=== PATIENT | male | born 1955 | race African-American/Black ===

== ENCOUNTER 2017-08-07 09:54 | Inpatient (IN) | payer OTHER ==
[2017-08-07] VITALS (7 sets, daily range): BP systolic 123–183; BP diastolic 67–103
[~2017-08-07] VITALS: Ht 170.2 cm; Wt 77.1 kg
--- NOTE | ~2017-08-07 | HC ---
[facility] [place] [address] CONSULTATION Name: RACHELLE STEELE Room #: 426-P [facility]..#: [id number] Admission: 08/07/17 Attend Phys: Jeffrey Godinez MD Discharge: 08/10/17 Date of : 55 Report #: [id number] THIS REPORT FOR: //name// CC: Jeffrey Maciel DATE OF SERVICE: 08/08/2017 INTRODUCTION: The patient is a 62-year-old male who was admitted through [facility] Emergency Department approximately 24 hours ago with worsening condition involving his left fourth and fifth toes. This individual is a diabetic with a history of peripheral neuropathy who denies prior foot complications. He has been aware of increasing discoloration and skin quality changes associated with his left fourth and fifth toes over the past several months. In the last 1-2 weeks, he has had increasing pain. He denies any history of trauma to his toes and was not febrile, denying constitutional symptoms associated with a possible infection. He has no cellulitis of the left foot. When questioned regarding his vascular status, he denies history of symptoms suggestive of peripheral arterial disease. He has not had any prior vascular procedures or examinations. He was admitted with a diagnosis of osteomyelitis based on radiographs, it demonstrated dissolution of the left fourth distal phalanx, currently on IV antibiotics. PAST MEDICAL HISTORY: Includes history of diabetes with peripheral neuropathy. He is admitted with blood sugars over 400. ALLERGIES: Has a history of sensitivity to PENICILLIN. No prior history of foot surgery, ulcerations or trauma. PHYSICAL EXAMINATION: Pedal exam, dorsalis pedis and posterior tibial pulses are nonpalpable bilaterally. Capillary refill time is delayed. The left fourth and fifth toes are discolored, tight and shiny appearing with evidence of dry wound bed of the fifth toe where the nail is absent. The wound bed is dark. The left fourth toenail is intact. There is no gross pus or cellulitis. There is some very light drainage from the proximal nail fold. There is no distal wound present. Web space is slightly macerated. No additional wounds or infectious changes. Radiographs demonstrate almost complete absence of the left fourth distal phalanx. No osseous involvement of the fifth toe is appreciated. There are numerous pedal vessels on radiograph demonstrating medial calcification. IMPRESSION AND PLAN: 1. Diabetes mellitus with peripheral neuropathy and possible peripheral [address] [address] CONSULTATION Name: RACHELLE STEELE Room #: 426-P [facility] IN [facility]#: [id number] Admission: 08/07/17 Attend Phys: Jeffrey Godinez MD Discharge: 08/10/17 Date of : 55 Report #: [id number] arterial disease. 2. Infection, left fourth and fifth toes consistent with more chronic presentation. There is no ulceration at this time. Slight drainage from the fourth proximal nail fold and radiographic findings of osseous dissolution consistent with osteomyelitis or chronic changes associated with peripheral arterial disease. These toes are cool and discolored consistent with arterial etiology. Recommended continued IV antibiotics. We will order lower extremity arterial Doppler exam of both lower extremities. I discussed the patient's condition with him at length and this condition will likely require some surgical debridement including a probable amputation to rectify the osteomyelitis of the fourth toe. We will await results on arterial testing prior to intervening in this case as patient's condition is relatively stable. <ELECTRONICALLY SIGNED> By: Yaw Morgan DPM 08/12/17 0933 1111 [id number] Yaw Morgan DPM /nt
--- NOTE | ~2017-08-07 | O ---
[facility] [place] [address] OPERATIVE REPORT Name: RACHELLE STEELE Room #: 426-P [facility] IN ..#: [id number] Admission: 08/07/17 Attend Phys: Jeffrey Godinez MD Discharge: 08/10/17 Date of : 55 Report #: [id number] THIS REPORT FOR: //name// CC: Jeffrey Maciel DATE OF SERVICE: 08/09/2017 PREOPERATIVE DIAGNOSES: 1. Osteomyelitis of the left fourth digit. 2. Ischemic ulceration, left fifth digit. POSTOPERATIVE DIAGNOSES: 1. Osteomyelitis of the left fourth digit. 2. Ischemic ulceration, left fifth digit. PROCEDURE: Amputation of the left fourth and fifth digits to the metatarsophalangeal joints level. ANESTHESIA: LMA and local. HEMOSTASIS: Pneumatic ankle tourniquet. ESTIMATED BLOOD LOSS: 15 mL. PROCEDURE IN DETAIL: Under mild sedation, the patient was brought to the operating room and placed on the operating table in the supine position. A well-padded pneumatic ankle tourniquet was then placed about the patient's left ankle. Following sedation, local anesthesia was obtained about the surgery site utilizing a total of 20 mL of 1:1 mixture of 1% lidocaine plain and 0.5% Marcaine plain. The foot was then scrubbed, prepped, and draped in the usual aseptic manner. An Esmarch bandage was then utilized to exsanguinate the patient's left foot and the pneumatic ankle tourniquet was inflated to 250 mmHg. Attention was then directed to the left fourth digit where culture swabs were taken from the wound present overlying the distal phalanx, for aerobic and anaerobic bacteria. Two converging semielliptical transverse incisions were made at the base of the left fourth and fifth digits, encompassing both digits. Incisions were then deepened through the subcutaneous tissues with care being taken to identify and retract all vital neural and vascular structures. All bleeders were cauterized and ligated as necessary. At this time, dissection was continued down to the level of the left fourth and fifth metatarsophalangeal joints, which were then disarticulated utilizing a 15 blade. fourth digits were then passed from the operative field in toto. Both specimens were retained to be sent to pathology for both macro and microscopic studies. The wound was then inspected for any remaining devitalized or necrotic tissue, and [address] [address] OPERATIVE REPORT Name: RACHELLE STEELE Room #: 426-P [facility] IN [facility]#: [id number] Admission: 08/07/17 Attend Phys: Jeffrey Godinez MD Discharge: 08/10/17 Date of : 55 Report #: [id number] it should be noted that none was found. The wound was then copiously irrigated with bacitracin and sterile normal saline solution. Any remaining bleeders were then cauterized and ligated as necessary. The skin was then reapproximated and coapted utilizing 3-0 nylon in simple interrupted suture technique. The incision was then dressed with Betadine-soaked Adaptic and covered with a sterile compressive dressing consisting of 4 x 4s, Kerlix and an Aren wrap. The pneumatic ankle tourniquet was then deflated and a prompt hyperemic response was noted to digits 1, 2, 3 of the left foot. The patient tolerate d the procedure and anesthesia well. He was transferred to the recovery room with vital signs stable. Following a period of postoperative monitoring, the patient will be readmitted to the floor for continued IV antibiotics and postoperative recovery. <ELECTRONICALLY SIGNED> By: Tanya Frias DPM 08/17/17 1037 08 2141 Tanya Frias DPM /nt
--- NOTE | ~2017-08-07 | S ---
[facility] [place] [address] SURGICAL PATH RPT PROCEDURE Name: RACHELLE STEELE Room #: 426-P DIS IN M.R.#: [id number] Admission: 08/07/17 Date of : 55 Discharge: 08/10/17 Report #: [id number] Path Case #: [id number] PATHOLOGY REPORT COLLECTION DATE: 08/09/2017 RECEIVED DATE: 08/09/2017 SUBMITTING PHYS: Dr. Tanya Frias OTHER PHYS: Dr. Jeffrey Maciel SPECIMEN(S) RECEIVED: A.Left 4th toe B.Left 5th toe * * * * * * * * * * * * FINAL DIAGNOSIS: A. "Left 4th toe", amputation: - Skin and subcutaneous tissue with marked reactive changes including acute and chronic inflammation and pseudoepitheliomatous hyperplasia. - Decalcified bone with acute and chronic inflammation, fibrosis and active bony remodeling (see comment). B. "Left 5th toe", amputation: - Skin and subcutaneous tissue with acute and chronic inflammation, necrosis, granulation tissue, fibrosis, fat necrosis and pseudoepitheliomatous hyperplasia. - Decalcified bone with acute osteomyelitis. COMMENT: Within specimen A, the bony changes may represent chronic osteomyelitis. Clinical and radiographic correlation is recommended. (CLW:oscar; 08/11/2017) PATHOLOGIST: Kamryn Salazar M.D. REPORT ELECTRONICALLY SIGNED BY: Kamryn Salazar M.D. DATE/TIME: 08/11/2017 13:01 * * * * * * * * * * * * GROSS PATHOLOGY: A. The specimen is received in formalin labeled "Rachelle Steele fourth toe-left". Received is an amputated digit measuring 4.6 x 2.5 x 1.8 cm in greatest dimensions. The bone margin is smooth and concave in appearance, consistent with disarticulation. The bone and soft tissue margins are inked black. The nail is present displaying a light cabrera and flaky appearance. The epidermal surface is pale cabrera to dusky carreon-brown and wrinkled in appearance. No distinct nodules or [address] [address] SURGICAL PATH RPT PROCEDURE Name: RACHELLE STEELE Tomas Room #: 426-P DIS IN M.R.#: [id number] Admission: 08/07/17 Date of : 55 Discharge: 08/10/17 Report #: [id number] Path Case #: [id number] lesions are noted grossly. A full-length longitudinal cross-section is submitted in cassettes A1 and A2, from proximal to distal aspects, following decalcification. B. The specimen is received in formalin labeled "Rachelle Steele fifth toe-left". Received is an amputated digit measuring 4.3 x 2.3 x 2.17 m in greatest dimensions. The bone margin is smooth and concave in appearance, consistent with disarticulation. The bone and soft tissue margins are inked black. The nail is absent. The epidermal surface displays a well-circumscribed, focally ulcerated light brown lesion measuring 2.1 x 1.3 cm, which is 1.0 cm from the closest skin margin. The remainder of the epidermal surface is carreon-cabrera to dusky carreon-brown in appearance. A full-length longitudinal cross-section is submitted in cassettes B1 and B2, proximal to distal aspects, following decalcification. (CAA; 08/10/2017) CLINICAL HISTORY: Diabetic foot, left INITIAL CPT CODE(S): A; 46733, 39856 B; 43813, 53872 Professional services performed by [facility] at [place] [address] [address], [place] [address] Technical services performed by el? at [address] [place] [address], [address], [place] [address]. [facility] [place] [address] PHONE: [phone] DIRECTOR: Santana Blackman M.D. * * * END OF REPORT * * *
[~2017-08-07 09:54] MED LIST: ASPIRIN325; EAR DROPS15 ML OT; GLUCOPHAGE XR750 MG PO; HUMALOG100 UNIT/1 SQ; LISINOPRIL10 MG PO; LOTENSIN20 MG PO; METFORMIN; NORCO 5-325 TA1 EACH PO; NORCO 7.5-3251 EACH PO
[2017-08-07 10:20] LABS: ABSOLUTE NEUTROPHILS 2.6 thou/uL (1.4-8.2); BASOPHILS 0.5 % (0.0-2.0); EOSINOPHILS 4.1 % (0.0-3.0); HEMATOCRIT 36.2 % (42.0-52.0); HEMOGLOBIN 11.9 gm/dL (14.0-18.0); LYMPHOCYTES 29.4 % (24.0-44.0); MCH 30.1 pg (26.0-34.0); MCHC 32.8 g/dL (28.0-37.0); MCV 91.8 fL (80.0-100.0); MONOCYTES 6.7 % (1.0-8.0); PLATELET COUNT 287 thou/uL (150-400); POLYS 59.3 % (36.0-66.0); RBC 3.94 mil/uL (4.50-6.00); RDW 13.7 % (10.5-14.5); WBC 4.3 thou/uL (4.0-11.0)
[2017-08-07 10:22] LABS: MANUAL DIFF NO
[2017-08-07 10:28] LABS: CALCIUM 8.8 mg/dL (8.5-10.1); POTASSIUM 4.4 mmol/L (3.5-5.1)
[2017-08-07 10:34] LABS: ALBUMIN 3.1 g/dL (3.4-5.0); TOTAL BILIRUBIN 0.3 mg/dL (<0.1-1.0); TOTAL PROTEIN 7.2 g/dL (6.4-8.2)
[2017-08-08 03:55] LABS: HEMATOCRIT 36.1 % (42.0-52.0); HEMOGLOBIN 11.9 gm/dL (14.0-18.0); MCH 30.3 pg (26.0-34.0); MCHC 33.1 g/dL (28.0-37.0); MCV 91.8 fL (80.0-100.0); RBC 3.93 mil/uL (4.50-6.00); RDW 13.5 % (10.5-14.5)
[2017-08-08 04:07] LABS: CALCIUM 8.2 mg/dL (8.5-10.1); CREATININE 0.9 mg/dL (0.7-1.3); POTASSIUM 4.1 mmol/L (3.5-5.1)
[2017-08-08 04:30] VITALS: BP 109/64
[2017-08-08 08:00] VITALS: BP 132/77
[2017-08-08 16:39] VITALS: BP 124/71
[2017-08-08 20:00] VITALS: BP 127/76
[2017-08-09 04:00] VITALS: BP 152/85
[2017-08-09 08:09] VITALS: BP 172/85
[2017-08-09 20:00] VITALS: BP 160/94
[2017-08-10 04:30] VITALS: BP 147/79
[2017-08-10 08:03] VITALS: BP 151/99
[2017-08-10] MEDS ORDERED: CLEOCIN HCL150 MG PO (12:03)
[2017-08-10] MEDS ORDERED: HUMALOG100 UNIT/1 SUBQ (12:03)
[2017-08-10 15:01] VITALS: BP 151/99
[2017-08-10 16:38] VITALS: BP 177/105
== END 2017-08-10 17:26 | disposition home or self-care (01) | DRG 617 ==
LOC: ER 09:54 → 4E 11:29 → EROBS 11:29 → 4E 12:49 → ENTRNSPT 08-10 17:12 → 4E 08-10 17:26
PROVIDERS: Hospitalist; Nurse Practitioner
PROC: 0Y6N0ZD Detachment at Left Foot, Partial 4th Ray, Open Approach (ICD-10-PCS; principal; 2017-08-09)
PROC: 0Y6N0ZF Detachment at Left Foot, Partial 5th Ray, Open Approach (ICD-10-PCS; 2017-08-09)
DX: E11.69 Type 2 diabetes mellitus with other specified complication (principal); M86.8X7 Other osteomyelitis, ankle and foot; L97.429 Non-pressure chronic ulcer of left heel and midfoot with unspecified severity; E44.1 Mild protein-calorie malnutrition; I10 Essential (primary) hypertension; K21.9 Gastro-esophageal reflux disease without esophagitis; E11.649 Type 2 diabetes mellitus with hypoglycemia without coma; E11.42 Type 2 diabetes mellitus with diabetic polyneuropathy; E11.621 Type 2 diabetes mellitus with foot ulcer; L08.9 Local infection of the skin and subcutaneous tissue, unspecified; Z79.82 Long term (current) use of aspirin; Z79.4 Long term (current) use of insulin; Z79.899 Other long term (current) drug therapy; Z88.0 Allergy status to penicillin
CPT/HCPCS: 10183; 50101; 50386; 56526; 56527; 57091; 62110; 62900; 70005

== ENCOUNTER → 2017-09-21 | Outpatient (CLI) | payer OTHER ==
[~2017-09-21] MED LIST changes: +ASPIR 8181 MG PO; +ATORVASTATIN CA40 MG PO; +CLEOCIN HCL150 MG PO; +COLACE100 MG PO; +DIOVAN320 MG PO; +FLONASE 0.05%50 MCG NASAL; +GABAPENTIN 100100 MG PO; +HUMALOG100 UNIT/1 SUBQ; +HYDROCHLOROTHIA25 M2 PO; +IBUPROFEN 800800 M1 PO; +IRON325 PO; +LANTUS SUBQ; +LYRICA 50 MG50 MG PO; +MIRALAX17 GM PO; +NAPROXEN375 MG PO; +NORFLEX100 MG PO; +NORVASC5 MG PO; +NOVOLOG100 UNIT/1 SUBQ; +OMEPRAZOLE40 MG PO; +PERCOCET 5-3251 EACH PO; +SILDENAFIL20 MG PO; +VITAMIN B122500 MCG PO; +VITAMIN D1000 UNI1 PO
== END ==
LOC: HYPER 09-20 16:20
DX: T87.89 Other complications of amputation stump (principal); E11.622 Type 2 diabetes mellitus with other skin ulcer; L97.521 Non-pressure chronic ulcer of other part of left foot limited to breakdown of skin; I70.245 Atherosclerosis of native arteries of left leg with ulceration of other part of foot; E11.40 Type 2 diabetes mellitus with diabetic neuropathy, unspecified; E11.69 Type 2 diabetes mellitus with other specified complication; M86.172 Other acute osteomyelitis, left ankle and foot; I10 Essential (primary) hypertension; J45.909 Unspecified asthma, uncomplicated; Z87.891 Personal history of nicotine dependence; Y83.5 Amputation of limb(s) as the cause of abnormal reaction of the patient, or of later complication, without mention of misadventure at the time of the procedure

== ENCOUNTER → 2017-09-30 | Outpatient (CLI) | payer OTHER | LOC: HYPER 09-29 14:22 | DX: T87.81 Dehiscence of amputation stump (principal); E11.621 Type 2 diabetes mellitus with foot ulcer; L97.521 Non-pressure chronic ulcer of other part of left foot limited to breakdown of skin; I70.245 Atherosclerosis of native arteries of left leg with ulceration of other part of foot; E11.40 Type 2 diabetes mellitus with diabetic neuropathy, unspecified; E11.69 Type 2 diabetes mellitus with other specified complication; M86.172 Other acute osteomyelitis, left ankle and foot; J45.909 Unspecified asthma, uncomplicated; I10 Essential (primary) hypertension; E11.319 Type 2 diabetes mellitus with unspecified diabetic retinopathy without macular edema; Z87.891 Personal history of nicotine dependence; Y83.5 Amputation of limb(s) as the cause of abnormal reaction of the patient, or of later complication, without mention of misadventure at the time of the procedure ==

== ENCOUNTER → 2017-10-05 | Outpatient (CLI) | payer OTHER | LOC: HYPER 06:53 | DX: T87.89 Other complications of amputation stump (principal); E11.621 Type 2 diabetes mellitus with foot ulcer; L97.521 Non-pressure chronic ulcer of other part of left foot limited to breakdown of skin; I70.245 Atherosclerosis of native arteries of left leg with ulceration of other part of foot; E11.40 Type 2 diabetes mellitus with diabetic neuropathy, unspecified; E11.69 Type 2 diabetes mellitus with other specified complication; M86.172 Other acute osteomyelitis, left ankle and foot; I10 Essential (primary) hypertension; J45.909 Unspecified asthma, uncomplicated; Z87.891 Personal history of nicotine dependence; Z89.422 Acquired absence of other left toe(s); Y83.5 Amputation of limb(s) as the cause of abnormal reaction of the patient, or of later complication, without mention of misadventure at the time of the procedure ==

== ENCOUNTER → 2017-10-06 | Outpatient (CLI) | payer OTHER | LOC: HYPER 06:50 → RAD 06:50 | DX: T81.31XD Disruption of external operation (surgical) wound, not elsewhere classified, subsequent encounter (principal); E11.40 Type 2 diabetes mellitus with diabetic neuropathy, unspecified; E11.69 Type 2 diabetes mellitus with other specified complication; M86.172 Other acute osteomyelitis, left ankle and foot; E11.621 Type 2 diabetes mellitus with foot ulcer; L97.521 Non-pressure chronic ulcer of other part of left foot limited to breakdown of skin; I70.245 Atherosclerosis of native arteries of left leg with ulceration of other part of foot; I10 Essential (primary) hypertension; J45.909 Unspecified asthma, uncomplicated; Z87.891 Personal history of nicotine dependence; Z89.422 Acquired absence of other left toe(s); Y83.8 Other surgical procedures as the cause of abnormal reaction of the patient, or of later complication, without mention of misadventure at the time of the procedure ==

== ENCOUNTER → 2017-10-07 | Outpatient (CLI) | payer OTHER | LOC: HYPER 08:25 | DX: T81.31XD Disruption of external operation (surgical) wound, not elsewhere classified, subsequent encounter (principal); E11.621 Type 2 diabetes mellitus with foot ulcer; L97.521 Non-pressure chronic ulcer of other part of left foot limited to breakdown of skin; I70.245 Atherosclerosis of native arteries of left leg with ulceration of other part of foot; E11.40 Type 2 diabetes mellitus with diabetic neuropathy, unspecified; E11.69 Type 2 diabetes mellitus with other specified complication; M86.172 Other acute osteomyelitis, left ankle and foot; I10 Essential (primary) hypertension; J45.909 Unspecified asthma, uncomplicated; Z87.891 Personal history of nicotine dependence; Z89.422 Acquired absence of other left toe(s); Y83.8 Other surgical procedures as the cause of abnormal reaction of the patient, or of later complication, without mention of misadventure at the time of the procedure ==

== ENCOUNTER → 2017-10-11 | Outpatient (CLI) | payer OTHER | LOC: HYPER 10-08 16:16 | DX: T87.81 Dehiscence of amputation stump (principal); E11.621 Type 2 diabetes mellitus with foot ulcer; I70.245 Atherosclerosis of native arteries of left leg with ulceration of other part of foot; L97.521 Non-pressure chronic ulcer of other part of left foot limited to breakdown of skin; E11.69 Type 2 diabetes mellitus with other specified complication; M86.172 Other acute osteomyelitis, left ankle and foot; E11.40 Type 2 diabetes mellitus with diabetic neuropathy, unspecified; J45.909 Unspecified asthma, uncomplicated; I10 Essential (primary) hypertension; Z87.891 Personal history of nicotine dependence; Y83.5 Amputation of limb(s) as the cause of abnormal reaction of the patient, or of later complication, without mention of misadventure at the time of the procedure ==

== ENCOUNTER → 2017-10-12 | Outpatient (CLI) | payer OTHER | LOC: HYPER 06:38 | DX: T81.31XD Disruption of external operation (surgical) wound, not elsewhere classified, subsequent encounter (principal); E11.621 Type 2 diabetes mellitus with foot ulcer; I70.245 Atherosclerosis of native arteries of left leg with ulceration of other part of foot; L97.521 Non-pressure chronic ulcer of other part of left foot limited to breakdown of skin; E11.69 Type 2 diabetes mellitus with other specified complication; M86.172 Other acute osteomyelitis, left ankle and foot; E11.40 Type 2 diabetes mellitus with diabetic neuropathy, unspecified; J45.909 Unspecified asthma, uncomplicated; I10 Essential (primary) hypertension; Z87.891 Personal history of nicotine dependence; Z89.422 Acquired absence of other left toe(s); Y83.8 Other surgical procedures as the cause of abnormal reaction of the patient, or of later complication, without mention of misadventure at the time of the procedure ==

== ENCOUNTER → 2017-10-13 | Outpatient (CLI) | payer OTHER | LOC: HYPER 06:50 | DX: T87.89 Other complications of amputation stump (principal); E11.621 Type 2 diabetes mellitus with foot ulcer; L97.521 Non-pressure chronic ulcer of other part of left foot limited to breakdown of skin; I70.245 Atherosclerosis of native arteries of left leg with ulceration of other part of foot; E11.69 Type 2 diabetes mellitus with other specified complication; M86.172 Other acute osteomyelitis, left ankle and foot; E11.40 Type 2 diabetes mellitus with diabetic neuropathy, unspecified; J45.909 Unspecified asthma, uncomplicated; I10 Essential (primary) hypertension; Z87.891 Personal history of nicotine dependence; Y83.5 Amputation of limb(s) as the cause of abnormal reaction of the patient, or of later complication, without mention of misadventure at the time of the procedure ==

== ENCOUNTER → 2017-10-13 | Outpatient (CLI) | payer OTHER | LOC: HYPER 06:45 | DX: T87.81 Dehiscence of amputation stump (principal); E11.621 Type 2 diabetes mellitus with foot ulcer; L97.521 Non-pressure chronic ulcer of other part of left foot limited to breakdown of skin; I70.245 Atherosclerosis of native arteries of left leg with ulceration of other part of foot; J45.909 Unspecified asthma, uncomplicated; I10 Essential (primary) hypertension; E11.69 Type 2 diabetes mellitus with other specified complication; M86.172 Other acute osteomyelitis, left ankle and foot; E11.40 Type 2 diabetes mellitus with diabetic neuropathy, unspecified; Z87.891 Personal history of nicotine dependence; Y83.5 Amputation of limb(s) as the cause of abnormal reaction of the patient, or of later complication, without mention of misadventure at the time of the procedure ==

== ENCOUNTER → 2017-10-14 | Outpatient (CLI) | payer OTHER | LOC: HYPER 06:48 | DX: T81.31XD Disruption of external operation (surgical) wound, not elsewhere classified, subsequent encounter (principal); E11.621 Type 2 diabetes mellitus with foot ulcer; I70.245 Atherosclerosis of native arteries of left leg with ulceration of other part of foot; L97.521 Non-pressure chronic ulcer of other part of left foot limited to breakdown of skin; E11.40 Type 2 diabetes mellitus with diabetic neuropathy, unspecified; E11.69 Type 2 diabetes mellitus with other specified complication; M86.172 Other acute osteomyelitis, left ankle and foot; J45.909 Unspecified asthma, uncomplicated; Z87.891 Personal history of nicotine dependence; Z89.422 Acquired absence of other left toe(s); Y83.8 Other surgical procedures as the cause of abnormal reaction of the patient, or of later complication, without mention of misadventure at the time of the procedure ==

== ENCOUNTER → 2017-10-19 | Outpatient (CLI) | payer OTHER | LOC: HYPER 06:52 | DX: T81.31XD Disruption of external operation (surgical) wound, not elsewhere classified, subsequent encounter (principal); E11.621 Type 2 diabetes mellitus with foot ulcer; I70.245 Atherosclerosis of native arteries of left leg with ulceration of other part of foot; L97.521 Non-pressure chronic ulcer of other part of left foot limited to breakdown of skin; E11.40 Type 2 diabetes mellitus with diabetic neuropathy, unspecified; E11.69 Type 2 diabetes mellitus with other specified complication; M86.172 Other acute osteomyelitis, left ankle and foot; J45.909 Unspecified asthma, uncomplicated; I10 Essential (primary) hypertension; Z87.891 Personal history of nicotine dependence; Z89.422 Acquired absence of other left toe(s); Y83.8 Other surgical procedures as the cause of abnormal reaction of the patient, or of later complication, without mention of misadventure at the time of the procedure ==

== ENCOUNTER → 2017-10-20 | Outpatient (CLI) | payer OTHER | LOC: HYPER 08:14 | DX: T81.31XD Disruption of external operation (surgical) wound, not elsewhere classified, subsequent encounter (principal); E11.621 Type 2 diabetes mellitus with foot ulcer; I70.245 Atherosclerosis of native arteries of left leg with ulceration of other part of foot; L97.521 Non-pressure chronic ulcer of other part of left foot limited to breakdown of skin; E11.40 Type 2 diabetes mellitus with diabetic neuropathy, unspecified; E11.69 Type 2 diabetes mellitus with other specified complication; M86.172 Other acute osteomyelitis, left ankle and foot; J45.909 Unspecified asthma, uncomplicated; Z87.891 Personal history of nicotine dependence; Z89.422 Acquired absence of other left toe(s); Y83.8 Other surgical procedures as the cause of abnormal reaction of the patient, or of later complication, without mention of misadventure at the time of the procedure ==

== ENCOUNTER → 2017-10-21 | Outpatient (CLI) | payer OTHER | LOC: HYPER 06:55 | DX: T81.31XD Disruption of external operation (surgical) wound, not elsewhere classified, subsequent encounter (principal); E11.621 Type 2 diabetes mellitus with foot ulcer; L97.521 Non-pressure chronic ulcer of other part of left foot limited to breakdown of skin; I70.245 Atherosclerosis of native arteries of left leg with ulceration of other part of foot; E11.69 Type 2 diabetes mellitus with other specified complication; M86.172 Other acute osteomyelitis, left ankle and foot; E11.40 Type 2 diabetes mellitus with diabetic neuropathy, unspecified; J45.909 Unspecified asthma, uncomplicated; I10 Essential (primary) hypertension; Z87.891 Personal history of nicotine dependence; Z89.422 Acquired absence of other left toe(s); Y83.8 Other surgical procedures as the cause of abnormal reaction of the patient, or of later complication, without mention of misadventure at the time of the procedure ==

== ENCOUNTER → 2017-10-25 | Outpatient (CLI) | payer OTHER | LOC: HYPER 07:00 | DX: T87.81 Dehiscence of amputation stump (principal); E11.621 Type 2 diabetes mellitus with foot ulcer; L97.521 Non-pressure chronic ulcer of other part of left foot limited to breakdown of skin; I70.245 Atherosclerosis of native arteries of left leg with ulceration of other part of foot; E11.40 Type 2 diabetes mellitus with diabetic neuropathy, unspecified; E11.69 Type 2 diabetes mellitus with other specified complication; M86.172 Other acute osteomyelitis, left ankle and foot; E11.319 Type 2 diabetes mellitus with unspecified diabetic retinopathy without macular edema; J45.909 Unspecified asthma, uncomplicated; I10 Essential (primary) hypertension; Z87.891 Personal history of nicotine dependence; Y83.5 Amputation of limb(s) as the cause of abnormal reaction of the patient, or of later complication, without mention of misadventure at the time of the procedure ==

== ENCOUNTER → 2017-10-27 | Outpatient (CLI) | payer OTHER | LOC: HYPER 07:05 | DX: T81.31XD Disruption of external operation (surgical) wound, not elsewhere classified, subsequent encounter (principal); E11.621 Type 2 diabetes mellitus with foot ulcer; I70.245 Atherosclerosis of native arteries of left leg with ulceration of other part of foot; L97.521 Non-pressure chronic ulcer of other part of left foot limited to breakdown of skin; E11.40 Type 2 diabetes mellitus with diabetic neuropathy, unspecified; E11.69 Type 2 diabetes mellitus with other specified complication; M86.172 Other acute osteomyelitis, left ankle and foot; I10 Essential (primary) hypertension; J45.909 Unspecified asthma, uncomplicated; Z87.891 Personal history of nicotine dependence; Z89.422 Acquired absence of other left toe(s); Y83.8 Other surgical procedures as the cause of abnormal reaction of the patient, or of later complication, without mention of misadventure at the time of the procedure ==

== ENCOUNTER → 2017-10-29 | Outpatient (CLI) | payer OTHER | LOC: HYPER 07:57 | DX: T81.31XD Disruption of external operation (surgical) wound, not elsewhere classified, subsequent encounter (principal); E11.621 Type 2 diabetes mellitus with foot ulcer; I70.245 Atherosclerosis of native arteries of left leg with ulceration of other part of foot; L97.521 Non-pressure chronic ulcer of other part of left foot limited to breakdown of skin; E11.40 Type 2 diabetes mellitus with diabetic neuropathy, unspecified; E11.69 Type 2 diabetes mellitus with other specified complication; M86.172 Other acute osteomyelitis, left ankle and foot; I10 Essential (primary) hypertension; J45.909 Unspecified asthma, uncomplicated; Z87.891 Personal history of nicotine dependence; Z89.422 Acquired absence of other left toe(s); Y83.8 Other surgical procedures as the cause of abnormal reaction of the patient, or of later complication, without mention of misadventure at the time of the procedure ==

== ENCOUNTER → 2017-11-02 | Outpatient (CLI) | payer OTHER | LOC: HYPER 06:45 | DX: T81.31XD Disruption of external operation (surgical) wound, not elsewhere classified, subsequent encounter (principal); E11.621 Type 2 diabetes mellitus with foot ulcer; I70.245 Atherosclerosis of native arteries of left leg with ulceration of other part of foot; L97.521 Non-pressure chronic ulcer of other part of left foot limited to breakdown of skin; E11.69 Type 2 diabetes mellitus with other specified complication; M86.172 Other acute osteomyelitis, left ankle and foot; E11.40 Type 2 diabetes mellitus with diabetic neuropathy, unspecified; J45.909 Unspecified asthma, uncomplicated; I10 Essential (primary) hypertension; Z87.891 Personal history of nicotine dependence; Z89.422 Acquired absence of other left toe(s); Y83.8 Other surgical procedures as the cause of abnormal reaction of the patient, or of later complication, without mention of misadventure at the time of the procedure ==

== ENCOUNTER → 2017-11-22 | Outpatient (CLI) | payer OTHER | LOC: HYPER 10-26 06:42 | DX: T87.89 Other complications of amputation stump (principal); E11.621 Type 2 diabetes mellitus with foot ulcer; I70.245 Atherosclerosis of native arteries of left leg with ulceration of other part of foot; L97.521 Non-pressure chronic ulcer of other part of left foot limited to breakdown of skin; E11.40 Type 2 diabetes mellitus with diabetic neuropathy, unspecified; E11.69 Type 2 diabetes mellitus with other specified complication; M86.172 Other acute osteomyelitis, left ankle and foot; J45.909 Unspecified asthma, uncomplicated; I10 Essential (primary) hypertension; Z87.891 Personal history of nicotine dependence; Y83.5 Amputation of limb(s) as the cause of abnormal reaction of the patient, or of later complication, without mention of misadventure at the time of the procedure ==

== ENCOUNTER → 2017-12-24 | Outpatient (CLI) | payer OTHER ==
[~2017-12-24] MED LIST changes: -ASPIR 8181 MG PO; -ATORVASTATIN CA40 MG PO; -COLACE100 MG PO; -DIOVAN320 MG PO; -FLONASE 0.05%50 MCG NASAL; -GABAPENTIN 100100 MG PO; -HYDROCHLOROTHIA25 M2 PO; -IBUPROFEN 800800 M1 PO; -IRON325 PO; -LANTUS SUBQ; -LYRICA 50 MG50 MG PO; -MIRALAX17 GM PO; -NAPROXEN375 MG PO; -NORFLEX100 MG PO; -NORVASC5 MG PO; -NOVOLOG100 UNIT/1 SUBQ; -OMEPRAZOLE40 MG PO; -PERCOCET 5-3251 EACH PO; -SILDENAFIL20 MG PO; -VITAMIN B122500 MCG PO; -VITAMIN D1000 UNI1 PO
== END ==
LOC: HYPER 07:59
DX: T87.89 Other complications of amputation stump (principal); E11.621 Type 2 diabetes mellitus with foot ulcer; L97.521 Non-pressure chronic ulcer of other part of left foot limited to breakdown of skin; I70.245 Atherosclerosis of native arteries of left leg with ulceration of other part of foot; E11.40 Type 2 diabetes mellitus with diabetic neuropathy, unspecified; E11.69 Type 2 diabetes mellitus with other specified complication; M86.172 Other acute osteomyelitis, left ankle and foot; J45.909 Unspecified asthma, uncomplicated; I10 Essential (primary) hypertension; Z87.891 Personal history of nicotine dependence; Y83.5 Amputation of limb(s) as the cause of abnormal reaction of the patient, or of later complication, without mention of misadventure at the time of the procedure

== ENCOUNTER → 2018-01-07 | Outpatient (CLI) | payer OTHER | LOC: HYPER 08:06 | DX: T87.81 Dehiscence of amputation stump (principal); E11.40 Type 2 diabetes mellitus with diabetic neuropathy, unspecified; E11.69 Type 2 diabetes mellitus with other specified complication; M86.172 Other acute osteomyelitis, left ankle and foot; E11.621 Type 2 diabetes mellitus with foot ulcer; I70.245 Atherosclerosis of native arteries of left leg with ulceration of other part of foot; L97.521 Non-pressure chronic ulcer of other part of left foot limited to breakdown of skin; I10 Essential (primary) hypertension; L84 Corns and callosities; J45.909 Unspecified asthma, uncomplicated; Z87.891 Personal history of nicotine dependence; Y83.5 Amputation of limb(s) as the cause of abnormal reaction of the patient, or of later complication, without mention of misadventure at the time of the procedure ==

== ENCOUNTER → 2018-02-11 | Outpatient (CLI) | payer OTHER | LOC: HYPER 08:03 | DX: T87.81 Dehiscence of amputation stump (principal); E11.621 Type 2 diabetes mellitus with foot ulcer; I70.245 Atherosclerosis of native arteries of left leg with ulceration of other part of foot; L97.521 Non-pressure chronic ulcer of other part of left foot limited to breakdown of skin; E11.40 Type 2 diabetes mellitus with diabetic neuropathy, unspecified; E11.69 Type 2 diabetes mellitus with other specified complication; M86.172 Other acute osteomyelitis, left ankle and foot; I10 Essential (primary) hypertension; J45.909 Unspecified asthma, uncomplicated; Z87.891 Personal history of nicotine dependence; Y83.8 Other surgical procedures as the cause of abnormal reaction of the patient, or of later complication, without mention of misadventure at the time of the procedure ==

== ENCOUNTER → 2018-02-28 | Outpatient (CLI) | payer OTHER | LOC: HYPER 06:54 | DX: T87.89 Other complications of amputation stump (principal); E11.40 Type 2 diabetes mellitus with diabetic neuropathy, unspecified; E11.69 Type 2 diabetes mellitus with other specified complication; M86.172 Other acute osteomyelitis, left ankle and foot; J45.909 Unspecified asthma, uncomplicated; I10 Essential (primary) hypertension; Z87.891 Personal history of nicotine dependence; Y83.5 Amputation of limb(s) as the cause of abnormal reaction of the patient, or of later complication, without mention of misadventure at the time of the procedure ==

== ENCOUNTER → 2018-03-14 | Outpatient (CLI) | payer OTHER | LOC: HYPER 03-07 07:07 | DX: T87.81 Dehiscence of amputation stump (principal); E11.621 Type 2 diabetes mellitus with foot ulcer; I70.245 Atherosclerosis of native arteries of left leg with ulceration of other part of foot; L97.521 Non-pressure chronic ulcer of other part of left foot limited to breakdown of skin; E11.40 Type 2 diabetes mellitus with diabetic neuropathy, unspecified; E11.69 Type 2 diabetes mellitus with other specified complication; M86.172 Other acute osteomyelitis, left ankle and foot; I10 Essential (primary) hypertension; L84 Corns and callosities; J45.909 Unspecified asthma, uncomplicated; Z87.891 Personal history of nicotine dependence; Y83.5 Amputation of limb(s) as the cause of abnormal reaction of the patient, or of later complication, without mention of misadventure at the time of the procedure ==

== ENCOUNTER 2018-03-28 07:02 | Inpatient (IN) | payer OTHER ==
[~2018-03-28] VITALS: Ht 170.2 cm; Wt 71.1 kg
--- NOTE | ~2018-03-28 | HC ---
[facility] [place] [address] CONSULTATION Name: RACHELLE STEELE Room #: 418-P [facility] IN M.R.#: [id number] Admission: 03/28/18 Attend Phys: Torrey Cardozo MD Discharge: Date of : 55 Report #: [id number] THIS REPORT FOR: //name// CC: Truman Helton DATE OF SERVICE: 03/29/2018 REASON FOR CONSULTATION: Left foot osteomyelitis. HISTORY OF PRESENT ILLNESS: The patient is a 63-year-old male who underwent left fourth and fifth toe amputations to the MTP joint in 07/2017. He has had a chronic nonhealing wound. He is followed by [facility] and was directly admitted. REVIEW OF SYSTEMS: NEUROLOGIC: He does report a history of diabetic neuropathy with decreased sensation to both of his feet. MUSCULOSKELETAL: Denies any other wounds. PAST MEDICAL HISTORY: Significant for hypertension, diabetes mellitus. ALLERGIES: PENICILLIN. HOME MEDICATIONS: Include amlodipine, aspirin, atorvastatin, fluticasone, gabapentin, hydrochlorothiazide, ibuprofen, insulin, omeprazole, pregabalin, sildenafil, valsartan, lisinopril and metformin. SOCIAL HISTORY: He uses a cane to ambulate. He lives at home with his . Denies smoking or drinking alcohol. SURGICAL HISTORY: Unknown. PHYSICAL EXAMINATION: GENERAL: The patient is awake and alert and oriented. He interacts appropriately. He is a well-developed, well-nourished male in no acute distress. VITAL SIGNS: Most recent vital signs show a temperature of 37.6, heart rate 79, respiration rate 18, blood pressure 140/81, pulse oximetry is 100 on room air. EXTREMITIES: Examination of his left lower extremity shows foul smelling necrotic wounds to the lateral aspect of his distal foot. I am unable to appreciate a dorsalis pedis pulse. Sensation is decreased. He does wiggle his remaining toes. LABORATORY STUDIES: Done on 03/28/2018 show white blood cell count 8.4, [facility] [address] [place] [address] CONSULTATION Name: RACHELLE STEELE Room #: 418-P [facility] IN [facility].#: [id number] Admission: 03/28/18 Attend Phys: Torrey Cardozo MD Discharge: Date of : 55 Report #: [id number] hemoglobin 10.5, hematocrit 30.8, platelet count 492. Chemistry is not done. IMAGING STUDIES: Show left osteomyelitis of the second through fifth metatarsals. IMPRESSION AND PLAN: Left foot osteomyelitis. I discussed the diagnosis as well as treatment options. This will require some type of amputation either a forefoot or midfoot amputation or a below-knee amputation. I will discuss with one of my [facility] partners and will also use recommendations of the wound care team. Most likely, this will be done later this week. The patient expressed a desire to avoid a below knee amputation. Questions were encouraged and answered to the best of my ability. By: D: 07/716 0755 Terra Moore MD /nt
--- NOTE | ~2018-03-28 | PATH ---
[facility] [address] [place] [address] PATHOLOGY RPT PROCEDURE Name: LUXIOMYRACHELLE Room #: 226-P DIS IN M.R.#: [id number] Admission: 03/28/18 Date of : 55 Discharge: 04/04/18 Report #: [id number] Path Case #: [id number] [facility] Accession Number: [id number] . 01 Material submitted: . LEFT LOWER LEG . 01 Clinical history: . Diabetic foot . 02 Diagnosis: Leg, left lower leg, below knee amputation: - Ulceration along with gangrenous necrosis as well as acute inflammation extending into subcutaneous tissue and bone. - Vessels showing calcific sclerosis, history of diabetes. - Bone margin grossly viable and unremarkable. - Skin margin unremarkable. (IUV:artie; 04/04/2018) QMS/04/04/2018 . 02 Electronically signed: . Martha Arriaga MD, Pathologist NPI- [id number] . 01 Gross description: . The specimen is received fresh, labeled "Rachelle Steele, left lower leg". Received is a feoqh-imf-nynd amputation specimen amputated through the tibia insula with a flat, smooth and firm resection margin. The specimen measures 24.1 cm from toe to heel, 15.9 cm from heel to skin margin, 26.6 cm from heel to fibular margin, and 27.1 cm from heel to tibia margin. Toes 1 through 3 are present. Toes 4 and 5 are absent and there is a focally ulcerated depressed lesion located at the location of toe 4, measuring 2.1 x 1.5 cm. Adjacent to this ulceration on the lateral aspect of the specimen, there is a well-circumscribed, irregular in contour, necrotic and brown-black lesion measuring 2.2 x 2.2 cm. The distal one half of the foot is brown-black in appearance with skin slippage present on the toes. The bone skin and soft tissue margins are grossly viable and unremarkable. Sectioning through the anterior and tibial vasculature bundles reveal patent, moderately calcified lumens. The specimen is submitted representatively as follows: . A1 installation service representative section of bone margin and viable skin margin A2 installation service representative section through ulceration at the aspect of toe 4, down to the bone A3 installation service representative sections through lesion on lateral aspect of foot A4 anterior tibial vasculature bundle, following light decalcification A5 posterior tibial vasculature bundle, following light [address] [address] PATHOLOGY RPT PROCEDURE Name: RACHELLE STEELE Room #: 226-P DIS IN M.R.#: [id number] Admission: 03/28/18 Date of : 55 Discharge: 04/04/18 Report #: [id number] Path Case #: [id number] decalcification. (CAA; 04/01/2018) QAC/QAC . 02 Pathologist provided ICD-10: I70.212, L98.499, I96 . 02 CPT . 138188, 788095 Performed at: [address], [place] [id number] MD Vinicius Oropeza MD Phone: [phone] Performed at: [address] [id number] MD Martha Arriaga MD Phone: [phone]
--- NOTE | ~2018-03-28 | O ---
[facility] [place] [address] OPERATIVE REPORT Name: LUXIOMYRACHELLE Room #: 226-P ADM IN M.R.#: [id number] Admission: 03/28/18 Attend Phys: Torrey Cardozo MD Discharge: Date of : 55 Report #: [id number] THIS REPORT FOR: //name// CC: Truman Garciaa Helton DATE OF SERVICE: 03/31/2018 PREOPERATIVE DIAGNOSIS: Infected gangrenous left foot. POSTOPERATIVE DIAGNOSIS: Infected gangrenous left foot. PROCEDURE: Left below-knee amputation. SURGEON: Denzel Velásquez MD INDICATIONS: This 63-year-old gentleman with diabetes, which is poorly controlled and severe peripheral vascular disease, has had problems with ischemic gangrenous change in the left foot for some time. He underwent amputation of portions of the fourth and fifth metatarsal and digits in the past. He has had an open wound over the past 7 months without successful healing. We have discussed proceeding either with a mid foot amputation or below-knee amputation. We have discussed this at some length and he has reviewed this with Infectious Disease and Wound Care. We all agree that his vascular supply is poor and the likelihood of successful healing at the mid foot level is low. Given this, we have agreed that a below-knee amputation is probably the best option. The patient and his and family understand and agree. DESCRIPTION OF PROCEDURE: The patient was taken to the operating room where he was placed under general anesthesia. Prophylactic intravenous antibiotics were given. The left leg was meticulously prepped and draped. The infected foot was excluded with an impervious bag. A thigh tourniquet was inflated to 300 mmHg. A fishmouth shaped skin incision was made in the mid leg. This was carried sharply through subcutaneous tissues, fascia and muscle, preserving a long posterior flap. The tibia and fibula were transected and the lower limb was removed and passed off the field. The wound was then thoroughly irrigated with antibiotic solution and appeared to be clean. There appears to be satisfactory blood supply at the muscle, and subcutaneous layer of the skin also seems to be intact and stable with satisfactory vascular supply. The tibia and fibula was shortened slightly further to allow adequate soft tissue closure. The tourniquet was then deflated. Good hemostasis was established with a gentle use of cautery and several silk ties. I note that the vascular structures are all rather firm and calcified, consistent with his severe chronic vascular disease, this certainly suggest that a more distal amputation level would not have been [facility] [address] [place] [address] OPERATIVE REPORT Name: LUXIOMYRACHELLE Room #: 226-P [facility] IN [facility]#: [id number] Admission: 03/28/18 Attend Phys: Torrey Cardozo MD Discharge: Date of : 55 Report #: [id number] successful. Once this had been completed, there appeared to be excellent hemostasis. The skin edges and the muscle all seemed to be adequately perfused and it seems to me there is a very satisfactory chance that this will heal in acceptably. At this point, a closure was performed, preserving as much muscle as possible to create a good bulbous stump. The fascia of the posterior flap was brought up to the anterior periosteum and subcutaneous fascia. This resulted a very satisfactory muscle closure. The subcutaneous tissues were closed with 2-0 Monocryl. The skin was closed with skin little. A sterile dressing was applied, adding a good deal of soft roll and some plaster splinting at the distal aspect and secured with a gently-applied Aren wrap. I did not feel there was any significant bleeding and did not feel a Hemovac drain was necessary. The patient was then awakened and returned to recovery room in good condition. <ELECTRONICALLY SIGNED> By: Denzel Velásquez MD 03/31/18 1021 0944 1007 Denzel Velásquez MD /nt
--- NOTE | ~2018-03-28 | HC ---
[facility] [place] [address] CONSULTATION Name: RACHELLE STEELE Room #: 418-P [facility] IN M.R.#: [id number] Admission: 03/28/18 Attend Phys: Torrey Cardozo MD Discharge: Date of : 55 Report #: [id number] THIS REPORT FOR: //name// CC: Truman Helton DATE OF SERVICE: 03/29/2018 REASON FOR CONSULTATION: I was asked to evaluate concerning left foot gangrene. HISTORY OF PRESENT ILLNESS: The patient is a 63-year-old with underlying history of diabetes and peripheral vascular disease. Last year, he had undergone left fourth and fifth digit amputation for osteomyelitis. Cultures revealed mixed elsa. He presents now with increased pain, swelling, blistering, drainage involving the left distal foot. Onset was 2 weeks ago. No reported trauma previously to this. No new shoes. Has had pain in the foot. No fever, chills or sweats. He has developed nausea and some emesis today. Workup last month noted monophasic flow in the distal lower extremity on the left. REVIEW OF SYSTEMS: Denies any weight loss. No change in vision. No pharyngitis symptoms, hearing changes. Denies any cough or sputum production. No pleuritic chest pain. No PND or orthopnea. No palpitations. No presyncopal episodes. No abdominal pain. No diarrhea. Continues to be nauseated. No dysuria or frequency. No other joints given him troubles. No myalgias. Denies any rash other than changes to his left foot. No headaches or vertigo. Blood sugars have been less than 150. Denies any anxiety or depression. No swollen lymph nodes. No history of seasonal allergies. ALLERGIES: PENICILLIN. Does tolerate cephalosporins. MEDICATIONS: As noted on his MAR including vancomycin. Other medicines prior to his admission included Norvasc, aspirin, Lipitor, Flonase, Neurontin, hydrochlorothiazide, Motrin, insulin, Lyrica, sildenafil, Diovan, Zestril, Glucophage. PAST MEDICAL HISTORY: Diabetes, hypertension, gastroesophageal reflux, obstructive sleep apnea. FAMILY HISTORY: Heart disease, cancer, hypertension. SOCIAL HISTORY: Nonsmoker, no significant alcohol intake. Now on disability. PHYSICAL EXAMINATION: VITAL SIGNS: He is afebrile. Vital signs were stable as noted and reviewed in [facility] [address] [place] [address] CONSULTATION Name: RACHELLE STEELE Tomas Room #: 418-P [facility] IN .R.#: [id number] Admission: 03/28/18 Attend Phys: Torrey Cardozo MD Discharge: Date of : 55 Report #: [id number] the chart. GENERAL: He was alert and conversant. No distress. EYES: Unremarkable. HENT: Unremarkable. Edentulous. No oral lesions. NECK: Supple with no thyromegaly or mass. CHEST: Clear with no adventitial sounds. Normal excursions. HEART: Regular without murmur, gallop or rub. Carotid upstrokes were normal without bruit. ABDOMEN: Soft, nontender. No hepatosplenomegaly, no mass, no hernias. EXTREMITIES: Unremarkable other than his left lower extremity, which had previous amputation of fourth and fifth toe on the left. He had evidence of gangrene involving the distal foot with blistering and serous drainage. Dusky toes and forefoot. Areas were cool. Diminished pulses, unable to palpate dorsalis pedis or posterior tibial. Normal femoral pulse and 2+ popliteal. Sensation was diminished in the foot. Deep tendon reflexes in the knees normal. Strength is otherwise intact. No rash or decubitus noted. NEUROLOGIC: He is alert and cooperative. PSYCHIATRIC: No evidence of anxiety or depression. LABORATORY STUDIES: Wound cultures are pending. Sodium 128, potassium 4.7, bicarbonate 26, creatinine 1, blood glucose over 300. Liver function test normal. Albumin at 2.4. Hemoglobin 10.5, WBC 8.4, platelet count 492,000. Differential was unremarkable. Sed rate 126. MRI scan was reviewed. I agree with the impression of the radiologist. There were bony changes throughout the metatarsals 2 through 5. This was associated with cortical destruction and fracture of the third and fourth metatarsals. Gas was in the soft tissues. IMPRESSION: 1. Gangrene of the left foot with associated osteomyelitis and pathologic fractures. 2. Peripheral vascular disease, I suspect small vessel obstruction distal to the popliteal artery. 3. Diabetes. 4. Hypertension. 5. Obstructive sleep apnea. 6. PENICILLIN allergy. RECOMMENDATION: The patient will require amputation. Level yet to be determined. Although his arterial studies were done in January, feel it is reasonable to repeat these, see if there is anything correctable in the distal popliteal which may allow for transmetatarsal amputation; however, I suspect BKA will be in order. He will continue with broad antibiotic coverage. If transmetatarsal amputation is performed, we will obtain tissue cultures at the time of surgery. Otherwise, we will continue with antibiotics for 3 days postop for BKA. I see no evidence of advancing infection into the calf at this time. [address] [address] CONSULTATION Name: RACHELLE STEELE Tomas Room #: 418-P [facility] IN .R.#: [id number] Admission: 03/28/18 Attend Phys: Torrey Cardozo MD Discharge: Date of : 55 Report #: [id number] We will await operative findings before making final decision. We will treat his nausea. Continue full support with diabetic control. <ELECTRONICALLY SIGNED> By: Josr Giang MD 03/30/18 0825 1721 52 Josr Giang MD /nt
--- NOTE | ~2018-03-28 | HC ---
[facility] [place] [address] CONSULTATION Name: RACHELLE STEELE Room #: 224-P [facility] IN M.R.#: [id number] Admission: 03/28/18 Attend Phys: Torrey Cardozo MD Discharge: Date of : 55 Report #: [id number] THIS REPORT FOR: //name// CC: Truman Helton DATE OF SERVICE: 03/29/2018 CHIEF COMPLAINT: Diabetic foot infection. HISTORY OF PRESENT ILLNESS: This is a 63-year-old patient well known to the wound care service. He had had a left foot infection earlier in the year with osteomyelitis of the left fourth and fifth digit. He underwent amputation of the left fourth and fifth digits to the metatarsophalangeal joint level. He was slow to heal. He was referred and received a short course of hyperbaric oxygen therapy, but due to his inability to come for regular appointments, never really completed or was able to benefit from that. He has had slow improvement of that wound; however, he presented to our wound clinic yesterday morning with significant drainage, odor and blistering of the entirety of the left forefoot. He complained of some fever and chills associated with this as well. He clearly was noted to have a serious infection and has been admitted for further evaluation and treatment. PAST MEDICAL HISTORY: Positive for history of diabetes mellitus. He has some peripheral vascular disease at the level of the ankle and below, but proximally has been relatively clear. He is very worried and concerned about the possibility of losing his leg. Positive for history of diabetic foot ulceration, diabetes mellitus, history of osteomyelitis, hypertension, gastroesophageal reflux disease and sleep apnea. SOCIAL HISTORY: The patient denies alcohol or tobacco use. FAMILY HISTORY: Noncontributory. MEDICATIONS: Include Norvasc, aspirin, Lipitor, Flonase, Neurontin, hydrochlorothiazide, Motrin, insulin, Lyrica, sildenafil, Diovan, Zestril and Glucophage. REVIEW OF SYSTEMS: CONSTITUTIONAL: The patient does have some fever and chills. Denies focal weakness. ENT: The patient denies earache, nasal drainage or sore throat. CARDIOVASCULAR: The patient denies chest pain or palpitations or diaphoresis. PULMONARY: The patient denies cough, shortness of breath. GASTROINTESTINAL: The patient denies nausea, vomiting, diarrhea or abdominal [facility] [address] [place] [address] CONSULTATION Name: LUXIOMYRACHELLE Room #: 224-P [facility] IN .R.#: [id number] Admission: 03/28/18 Attend Phys: Torrey Cardozo MD Discharge: Date of : 55 Report #: [id number]. GENITOURINARY: The patient denies frequency, urgency of urination. ORTHOPEDIC: The patient does complain of pain and drainage in his left foot. Other systems in a 14-point review of systems are negative. PHYSICAL EXAMINATION: VITAL SIGNS: At this time include pulse 86, respiratory rate 16, blood pressure 115/67, temperature 98.0. GENERAL: This is a chronically ill-appearing male patient who appears to be in minimal distress. HEENT: Head is normocephalic. Nose and throat clear. NECK: Supple. LUNGS: Clear. HEART: S1, S2. ABDOMEN: Soft. Bowel sounds present. EXTREMITIES: Demonstrate diminished distal pulses on the left side. He has significant odor, drainage and blistering and tissue loss involving the entirety of the forefoot with a dusky appearing to the foot overall. NEUROLOGIC: He is alert and moving all 4 extremities spontaneously. LABORATORY DATA: Includes sodium 128, potassium 4.7, CO2 of 26, BUN 10, creatinine 1.0, glucose 363. SGOT is 10. Total bilirubin 0.3, calcium 9.0, alkaline phosphatase 89, SGPT is 12. Total protein is 8.4, albumin is low at 2.4. MRI demonstrates advanced widespread acute osteomyelitis within the second through fifth metatarsals with pathologic fracture and cortical destruction involving the distal second, third and fourth metatarsals. Arterial Doppler study from January demonstrates no hemodynamically significant stenosis; however, monophasic low velocity is seen in the posterior and dorsalis pedis suggesting a possible area of stenosis. We will repeat this study again here. CLINICAL IMPRESSION: 1. Limb threatening diabetic foot infection, left lower extremity. 2. History of some mild peripheral arterial disease. 3. Diabetes mellitus with hyperglycemia. 4. Osteomyelitis. RECOMMENDATIONS: At this point in time, the patient will be treated with topical Dakin's moist gauze. Clearly, he will need at minimum a transmetatarsal or higher level amputation. He is very reluctant to consider below-knee amputation at this time. Orthopedic Surgery has been consulted. We will confirm his vascular status before proceeding with any surgical options. He would benefit from hyperbaric oxygen therapy, both for postoperative flap support as well as the Palma 3 diabetic foot. Ulcer indication is unclear as [facility] [address] [place] [address] CONSULTATION Name: RACHELLE STEELE Room #: 224-P [facility] IN MSuzan.#: [id number] Admission: 03/28/18 Attend Phys: Torrey Cardozo MD Discharge: Date of : 55 Report #: [id number] to whether he will be able to make a regular followup once he is an outpatient, however. All questions have been answered. I appreciate the opportunity to participate in his care. <ELECTRONICALLY SIGNED> By: Torrey Cardozo MD 03/30/18 1752 1920 2340 Torrey Cardozo MD /nt
--- NOTE | ~2018-03-28 | EKG ---
[address] [place] [employer] [address] ELECTROCARDIOGRAM REPORT Name: LUXIOMYRACHELLE Room #: 418- [facility] IN M.R.#: [id number] Admission: 03/28/18 Attend Phys: Torrey Cardozo MD Discharge: Date of : 55 Report #: [id number] THIS REPORT FOR: //name// 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
[2018-03-28 14:20] LABS: ABSOLUTE NEUTROPHILS 6.3 thou/uL (1.4-8.2); BASOPHILS 0.4 % (0.0-2.0); HEMATOCRIT 30.8 % (42.0-52.0); HEMOGLOBIN 10.5 gm/dL (14.0-18.0); LYMPHOCYTES 17.9 % (24.0-44.0); MCH 30.4 pg (26.0-34.0); MCHC 34.1 g/dL (28.0-37.0); MCV 89.1 fL (80.0-100.0); MONOCYTES 6.2 % (1.0-8.0); PLATELET COUNT 492 thou/uL (150-400); POLYS 74.5 % (36.0-66.0); RBC 3.45 mil/uL (4.50-6.00); RDW 12.9 % (10.5-14.5); WBC 8.4 thou/uL (4.0-11.0)
[2018-03-28 15:50] LABS: ALBUMIN 2.4 g/dL (3.4-5.0); MAGNESIUM 1.7 mg/dL (1.8-2.4); POTASSIUM 4.7 mmol/L (3.5-5.1); TOTAL BILIRUBIN 0.3 mg/dL (<0.1-1.0); TOTAL PROTEIN 8.4 g/dL (6.4-8.2)
[2018-03-28 17:59] VITALS: BP 172/109
[2018-03-28 19:06] VITALS: BP 179/102
[2018-03-28] MEDS ORDERED: NORVASC5 MG PO (20:55)
[2018-03-28] MEDS ORDERED: ASPIR 8181 MG PO (20:56)
[2018-03-28] MEDS ORDERED: ATORVASTATIN CA40 MG PO (20:57)
[2018-03-28] MEDS ORDERED: FLONASE 0.05%50 MCG NASAL (21:00)
[2018-03-28] MEDS ORDERED: HYDROCHLOROTHIA25 M2 PO (21:01)
[2018-03-28] MEDS ORDERED: GABAPENTIN 100100 MG PO (21:01)
[2018-03-28] MEDS ORDERED: IBUPROFEN 800800 M1 PO (21:02)
[2018-03-28] MEDS ORDERED: LANTUS SUBQ (21:04)
[2018-03-28] MEDS ORDERED: OMEPRAZOLE40 MG PO (21:05)
[2018-03-28] MEDS ORDERED: LYRICA 50 MG50 MG PO (21:05)
[2018-03-28] MEDS ORDERED: SILDENAFIL20 MG PO (21:10)
[2018-03-28] MEDS ORDERED: DIOVAN320 MG PO (21:11)
[2018-03-28 21:26] VITALS: BP 184/91
[2018-03-28 23:10] VITALS: BP 185/86
[2018-03-29 03:19] VITALS: BP 140/81
[2018-03-29 08:31] VITALS: BP 194/103
[2018-03-29 15:51] VITALS: BP 115/67
[2018-03-29 15:56] VITALS: BP 115/67
[2018-03-29 19:20] VITALS: BP 100/52
[2018-03-30 03:47] VITALS: BP 123/83
[2018-03-30 06:27] LABS: ABSOLUTE NEUTROPHILS 6.5 thou/uL (1.4-8.2); BASOPHILS 0.3 % (0.0-2.0); EOSINOPHILS 0.9 % (0.0-3.0); HEMATOCRIT 29.5 % (42.0-52.0); HEMOGLOBIN 10.1 gm/dL (14.0-18.0); LYMPHOCYTES 15.5 % (24.0-44.0); MCH 30.1 pg (26.0-34.0); MCHC 34.1 g/dL (28.0-37.0); MCV 88.3 fL (80.0-100.0); MONOCYTES 6.2 % (1.0-8.0); PLATELET COUNT 512 thou/uL (150-400); POLYS 77.1 % (36.0-66.0); RBC 3.34 mil/uL (4.50-6.00); WBC 8.4 thou/uL (4.0-11.0)
[2018-03-30 06:31] LABS: CALCIUM 8.9 mg/dL (8.5-10.1); CREATININE 1.1 mg/dL (0.7-1.3); POTASSIUM 3.9 mmol/L (3.5-5.1)
[2018-03-30 08:20] VITALS: BP 123/69
[2018-03-30 09:11] LABS: GLYCOHEMOGLOBIN (HGB A1C) 14.2 % (4.8-5.6)
[2018-03-30 09:32] VITALS: BP 175/86
[2018-03-30 16:20] VITALS: BP 124/74
[2018-03-30 20:15] VITALS: BP 145/86
[2018-03-31 06:31] VITALS: BP 156/87
[2018-03-31 09:45] VITALS: BP 147/93
[2018-03-31 21:45] VITALS: BP 175/104
[2018-04-01 03:51] VITALS: BP 178/96
[2018-04-01 05:43] VITALS: BP 146/63
[2018-04-01 07:15] VITALS: BP 134/84
[2018-04-01 07:27] LABS: ABSOLUTE NEUTROPHILS 9.6 thou/uL (1.4-8.2); BASOPHILS 0.2 % (0.0-2.0); EOSINOPHILS 0.9 % (0.0-3.0); HEMOGLOBIN 9.3 gm/dL (14.0-18.0); LYMPHOCYTES 11.4 % (24.0-44.0); MCH 29.6 pg (26.0-34.0); MCHC 33.3 g/dL (28.0-37.0); MONOCYTES 5.9 % (1.0-8.0); PLATELET COUNT 448 thou/uL (150-400); POLYS 81.6 % (36.0-66.0); RBC 3.15 mil/uL (4.50-6.00); WBC 11.8 thou/uL (4.0-11.0)
[2018-04-01 07:32] LABS: CALCIUM 8.1 mg/dL (8.5-10.1); POTASSIUM 4.7 mmol/L (3.5-5.1)
[2018-04-01 19:31] VITALS: BP 174/93
[2018-04-01 22:45] VITALS: BP 147/90
[2018-04-02 08:00] VITALS: BP 150/86
[2018-04-02 19:43] VITALS: BP 135/78
[2018-04-03 07:50] VITALS: BP 180/95
[2018-04-03 19:56] VITALS: BP 143/81
[2018-04-04 08:20] VITALS: BP 146/90
[2018-04-04 15:52] VITALS: BP 146/90
== END 2018-04-04 16:06 | DRG 239 ==
LOC: HYPER 07:02 → 4E 12:20 → SICU 03-30 17:08 → ENTRNSPT 04-04 15:46 → EDTRNSPTSTS 04-04 15:53 → SICU 04-04 16:06
PROVIDERS: Hospitalist; Nurse Practitioner; Specialist
PROC: 0Y6J0Z3 Detachment at Left Lower Leg, Low, Open Approach (ICD-10-PCS; principal; 2018-03-31)
DX: E11.52 Type 2 diabetes mellitus with diabetic peripheral angiopathy with gangrene (principal); E43 Unspecified severe protein-calorie malnutrition; I96 Gangrene, not elsewhere classified; M86.8X7 Other osteomyelitis, ankle and foot; M84.475A Pathological fracture, left foot, initial encounter for fracture; L03.116 Cellulitis of left lower limb; E11.69 Type 2 diabetes mellitus with other specified complication; I10 Essential (primary) hypertension; K21.9 Gastro-esophageal reflux disease without esophagitis; G47.33 Obstructive sleep apnea (adult) (pediatric); E11.621 Type 2 diabetes mellitus with foot ulcer; L97.529 Non-pressure chronic ulcer of other part of left foot with unspecified severity; E11.65 Type 2 diabetes mellitus with hyperglycemia; I16.0 Hypertensive urgency; Z68.24 Body mass index [BMI] 24.0-24.9, adult; Z89.422 Acquired absence of other left toe(s); Z79.4 Long term (current) use of insulin; Z79.84 Long term (current) use of oral hypoglycemic drugs; Z79.899 Other long term (current) drug therapy; Z88.0 Allergy status to penicillin; Z88.8 Allergy status to other drugs, medicaments and biological substances; Z82.49 Family history of ischemic heart disease and other diseases of the circulatory system; Z80.8 Family history of malignant neoplasm of other organs or systems
CPT/HCPCS: 10783; 15002; 50010; 50101; 50386; 51412; 53000; 56524; 56525; 56526; 57091; 62110; 62900; 70005

== ENCOUNTER 2018-04-01 15:07 | Inpatient (IN) | payer OTHER ==
[~2018-04-01] VITALS: Ht 170.2 cm; Wt 63.5 kg
--- NOTE | ~2018-04-01 | PLAN ---
[facility] [address] [address] REHAB UNIT PLAN OF CARE Name: LUXIOMYRACHELLE Room #: 501-A [facility] IN ..#: [id number] Admission: 04/04/18 Attend Phys: Denzel Maurer MD Discharge: Date of : 55 Report #: [id number] THIS REPORT FOR: //name// CC: Denzel Helton DATE OF SERVICE: 04/06/2018 PROGRESS NOTE AND OVERALL PLAN OF CARE SUBJECTIVE: The patient is seen back today in followup. He is in no distress. Last recorded temperature was 98, pulse was 90, respirations are 20, and blood pressure was 128/83. He is alert. The surgical dressing was removed and he has a stump dump motorman in place now. Transfers are contact guard and he is starting to hop short distances 75 feet with a front-wheeled walker, contact guard assistance. In occupational therapy, lower body dressing has been contact guard. He does have 5 and 3 steps and 12 inside steps. We will need to work further on steps as he further improves. ASSESSMENT: 1. Left lower extremity osteomyelitis, status post below-knee amputation on 03/31/2018. 2. Diabetes mellitus type 2. 3. Generalized debilitation. 4. Hypertension. 5. Obstructive sleep apnea with home CPAP. 6. Gastroesophageal reflux disease. 7. Multiple steps, two story house, five entry, and then a flight of stairs to the second floor. PLAN: The overall plan of care is based on the preadmission screen, post-admission physician evaluation, and information garnered from therapy assessments. 1. Estimated length of stay is at this point planning for discharge next Wednesday. 2. Medical prognosis is reasonably good. 3. Anticipated interventions includes the interdisciplinary acute inpatient rehabilitation program. 4. Anticipated functional outcomes would be for the patient to become modified independent with transfers, mobility, ADLs as well as to improve as far as steps that he can return back to the home setting. 5. Discharge destination would be back to the home setting, where he lives with his as noted above. 6. Expected therapy by discipline includes PT and OT 1-1/2 hours per day each [address] [address] REHAB UNIT PLAN OF CARE Name: RACHELLE STEELE Room #: 501-A [facility] IN [facility]#: [id number] Admission: 04/04/18 Attend Phys: Denzel Maurer MD Discharge: Date of : 55 Report #: [id number] five days a week throughout the duration of the acute inpatient rehabilitation stay. <ELECTRONICALLY SIGNED> By: Denzel Maurer MD 04/08/18 1653 0806 0829 Denzel Maurer MD /MARQUISE
--- NOTE | ~2018-04-01 | H ---
[facility] [place] [address] HISTORY AND PHYSICAL Name: LUXIOMYRACHELLE Room #: 501-A [facility] IN [facility].#: [id number] Admission: 04/04/18 Attend Phys: Denzel Maurer MD Discharge: Date of : 55 Report #: [id number] THIS REPORT FOR: //name// CC: Denzel Guevaramez DATE OF SERVICE: 04/04/2018 HISTORY AND PHYSICAL/POST-ADMISSION PHYSICIAN EVALUATION HISTORY OF PRESENT ILLNESS: The patient is a 63-year-old -Omani male who was directly [facility]2018 for nonhealing ulcers of left foot and fever, chills and nausea. He was found to have osteomyelitis and required a left below knee amputation on 03/31/2018. He was noted to have a significant decline from his premorbid functional level and has now been admitted for acute in-hospital inpatient rehabilitation. PAST MEDICAL HISTORY: Includes diabetes mellitus, hypertension, GERD, sleep apnea with CPAP at night, left foot toes amputation. ALLERGIES: REGLAN AND PENICILLIN. MEDICATIONS: Please see the full medication listing. This includes vitamins, herbals, and supplements. FAMILY HISTORY: Heart disease, cancer, hypertension. HABITS: No history of tobacco or alcohol abuse. SOCIAL HISTORY: Lives in a 2-aneta house with his . He thinks there are 5 entry stairs, then 1 flight of stairs to the second floor, bedroom and bathroom from the main level on the living level and the kitchen. Premorbidly had been utilizing a quad cane. REVIEW OF SYSTEMS: No current complaints of chest pain, shortness of breath or abdominal discomfort. Did not offer any specific complaints as far as his amputation at this time. Denies any numbness of his distal lower extremities. PHYSICAL EXAMINATION: GENERAL: He is a pleasant 63-year-old -Omani male in no obvious distress. VITAL SIGNS: Last recorded temperature 97.9, pulse 90, respirations 20, blood pressure 170/90. The patient is alert, pleasant. HEENT: Appears to be benign. NEUROLOGIC: Cranial nerves are grossly intact. Facies are symmetric. He has functional range of motion of both upper extremities without obvious focal [facility] [address] [place] [address] HISTORY AND PHYSICAL Name: IVETTERACHELLE Room #: 501-A [facility] IN [facility]#: [id number] Admission: 04/04/18 Attend Phys: Denzel Maurer MD Discharge: Date of : 55 Report #: [id number] weakness. DTRs are trace to 1. CHEST: Sounded clear to auscultation. CARDIAC: Regular rate and rhythm. ABDOMEN: Bowel sounds positive, nontender. GENITOURINARY AND RECTAL: Deferred. MUSCULOSKELETAL: As far as his lower extremities, he has functional range of motion of the right lower extremity. There is no skin breakdown of right distal lower extremity. He might have some mild decreased sensation and proprioception of right large toe. Left lower extremity is dressed, clean, dry and intact. Negative Homans of right lower extremity. He is transferring with min assist. ASSESSMENT: A 63-year-old -Omani male with the following problem list: 1. Left lower extremity osteomyelitis, status post below-knee amputation on 03/31/2018. 2. Type 2 diabetes mellitus. 3. Generalized debilitation. 4. Hypertension. 5. Obstructive sleep apnea with home CPAP. 6. Gastroesophageal reflux disease. PLAN: The patient is admitted for acute in-hospital inpatient rehabilitation. From a postadmission physician evaluation perspective, there are no relevant changes since the preadmission screening. Please see the above review of prior and current medical and functional conditions and comorbidities. Please see the patient's previous and current functional status. As far as risk of complications, the patient has multiple medical comorbidities as noted above. Initial plan of care involves the interdisciplinary acute inpatient rehabilitation program with the goal of maximizing the patient's functional independence, so that he can hopefully return back to his prior living situation. Measurable functional goals would be for the patient to become modified independent with transfers, mobility and ADLs, so that he can return back to the home setting. Prognosis is reasonably good with the estimated length of stay probably 7-10 days, pending progress. Stairs will be an issue. Potential barriers would include his functional mobility and ADL deficits. <ELECTRONICALLY SIGNED> By: Denzel Maurer MD 04/05/18 1528 0932 0948 Denzel Maurer MD /nt
--- NOTE | ~2018-04-01 | PLAN ---
[facility] [address] [address] REHAB UNIT PLAN OF CARE Name: RACHELLE STEELE Room #: 501-A ADM IN .R.#: [id number] Admission: 04/04/18 Attend Phys: Denzel Maurer MD Discharge: Date of : 55 Report #: [id number] THIS REPORT FOR: //name// CC: Denzel Helton DATE OF SERVICE: 04/06/2018 ADDENDUM: The patient did miss some therapies yesterday secondary to a Lockstitch Waistband Setter Prosthetic visit when he was being fitted for an [place]ield. <ELECTRONICALLY SIGNED> By: Denzel Maurer MD 04/08/18 1653 0809 0836 Denzel Maurer MD /nt
--- NOTE | ~2018-04-01 | HC ---
[facility] [place] [address] CONSULTATION Name: IVETTERACHELLE Room #: 501-A [facility] IN ..#: [id number] Admission: 04/04/18 Attend Phys: Denzel Maurer MD Discharge: Date of : 55 Report #: [id number] THIS REPORT FOR: //name// CC: Denzel Helton DATE OF SERVICE: 04/09/2018 NEUROBEHAVIORAL STATUS EXAM ATTENDING PHYSICIAN: Denzel Maurer MD ATG ARCHITECT: Lester Fortune, PhD CLINICAL PRESENTATION: The patient is a 63-year-old male admitted to the [facility] for a comprehensive inpatient rehabilitation program to improve functional mobility, activities of daily living and self-care and mental status secondary to deficits from a maznx-jty-zpmn amputation. The patient had been experiencing nonhealing ulcers of the left foot, and fever, chills and nausea. He was diagnosed with osteomyelitis and required a left numhs-eow-oaoq amputation on 03/31/2018. PAST MEDICAL HISTORY: Includes diabetes mellitus, hypertension, GERD, sleep apnea with CPAP and left front toes amputation. A complete description of his medical condition and history can be found in his medical record. Neuropsychological consultation was requested to provide assistance in the assessment of cognitive and emotional status and to provide recommendations and services. Prior to this most recent admission, he was living with the assistance of his in their home. He has a very large family. He reports having had 12 children and 17 brothers and sisters. His family is his main source of social support and provides additional help as necessary in the home. The patient is a high school graduate. 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 TECHNIQUES UTILIZED: Clinical interview, review of medical records, staff consultation and behavioral observation, mini mental status exam 2 standard version, subtest. EXAMINATION FINDINGS: The patient was alert and cooperative with the assessment. He accurately described events surrounding his admission. There is no evidence of aphasia. His thoughts are logical and goal oriented. There is no evidence of thought disorder. He does not report auditory or visual hallucinations. The patient denies subjective depression or anxiety. He states [facility] [address] [place] [address] CONSULTATION Name: RACHELLE STEELE Room #: 501-A [facility] IN [facility].#: [id number] Admission: 04/04/18 Attend Phys: Denzel Maurer MD Discharge: Date of : 55 Report #: [id number] that sleep, appetite and cognition are within normal limits. There is no report of alcohol or drug abuse. He relies on liam and family in order to cope with sources of stress associated with his medical well-being. His performance on the MMSE 2 brief version is within normal limits with a raw score of 14-16. However, he did require elaboration in regard to the vocabulary of specific items such as season. When given options, he was able to correctly identify the season; however, instances of variability in auditory comprehension required clarification. The MMSE 2 standard version cannot be completely administered because of severe impairment in vision. He is blind in his right eye and has very limited sight in his left eye. He was 1/5 for serial 7's. The patient was unable to read and follow a single command. He also could not copy a simple geometric design or identify shapes primarily because of visual deficits. DIAGNOSTIC IMPRESSION: Mild neurocognitive disorder, unspecified, without behavior disorder. RECOMMENDATIONS: Continued assistance will be necessary in the home for both visual deficits as a result of the visual impairment. Variability in cognition is likely as a result of decreased concentration, variability in memory and intermittent difficulty with auditory comprehension. RECOMMENDATIONS: Continued assistance in the home. He will need increased verbal and auditory feedback to help compensate for visual deficits. Specific instructions along with a low vision environmental interaction will assist in overall adjustment and participation in therapy. Therapy staff should introduce themselves to him. There would also be a benefit to describe the specific therapy in which he is engaged and the purpose of the treatment. Thank you very much for allowing me to provide the consultation on this patient. By: 1325 0051 Lester Fortune, PhD /nt
[~2018-04-01 15:07] MED LIST changes: +ASPIR 8181 MG PO; +ATORVASTATIN CA40 MG PO; +DIOVAN320 MG PO; +FLONASE 0.05%50 MCG NASAL; +GABAPENTIN 100100 MG PO; +HYDROCHLOROTHIA25 M2 PO; +IBUPROFEN 800800 M1 PO; +LANTUS SUBQ; +LYRICA 50 MG50 MG PO; +NORVASC5 MG PO; +OMEPRAZOLE40 MG PO; +SILDENAFIL20 MG PO
[2018-04-04 17:00] VITALS: BP 153/91
[2018-04-04 19:10] VITALS: BP 170/90
[2018-04-05 05:22] LABS: CREATININE 0.9 mg/dL (0.7-1.3); POTASSIUM 3.9 mmol/L (3.5-5.1)
[2018-04-05 05:27] LABS: HEMATOCRIT 24.7 % (42.0-52.0); HEMOGLOBIN 8.5 gm/dL (14.0-18.0); MCH 30.6 pg (26.0-34.0); MCHC 34.3 g/dL (28.0-37.0); MCV 89.2 fL (80.0-100.0); RBC 2.77 mil/uL (4.50-6.00); RDW 12.9 % (10.5-14.5)
[2018-04-05 07:35] VITALS: BP 163/94
[2018-04-05 19:20] VITALS: BP 128/83
[2018-04-06 07:01] VITALS: BP 122/80
[2018-04-06 19:00] VITALS: BP 136/67
[2018-04-07 09:33] VITALS: BP 132/90
[2018-04-07 11:24] LABS: HEMATOCRIT 26.5 % (42.0-52.0); HEMOGLOBIN 8.8 gm/dL (14.0-18.0); MCH 29.7 pg (26.0-34.0); MCHC 33.3 g/dL (28.0-37.0); MCV 89.2 fL (80.0-100.0); RBC 2.97 mil/uL (4.50-6.00); RDW 13.1 % (10.5-14.5); WBC 5.6 thou/uL (4.0-11.0)
[2018-04-07 11:54] LABS: CALCIUM 8.4 mg/dL (8.5-10.1); MAGNESIUM 1.7 mg/dL (1.8-2.4); POTASSIUM 4.2 mmol/L (3.5-5.1); TOTAL BILIRUBIN 0.2 mg/dL (<0.1-1.0); TOTAL PROTEIN 7.3 g/dL (6.4-8.2)
[2018-04-07 21:20] VITALS: BP 151/88
[2018-04-08 07:55] VITALS: BP 113/66
[2018-04-08 20:26] VITALS: BP 178/89
[2018-04-08 20:30] VITALS: BP 145/72
[2018-04-09 04:34] LABS: CALCIUM 8.3 mg/dL (8.5-10.1); CREATININE 0.9 mg/dL (0.7-1.3); MAGNESIUM 1.8 mg/dL (1.8-2.4); POTASSIUM 3.8 mmol/L (3.5-5.1)
[2018-04-09 05:13] LABS: HEMATOCRIT 24.8 % (42.0-52.0); HEMOGLOBIN 8.4 gm/dL (14.0-18.0); MCHC 33.8 g/dL (28.0-37.0); MCV 88.7 fL (80.0-100.0); RBC 2.79 mil/uL (4.50-6.00); WBC 4.8 thou/uL (4.0-11.0)
[2018-04-09 07:30] VITALS: BP 130/74
[2018-04-09 19:12] VITALS: BP 132/69
[2018-04-10 07:30] VITALS: BP 122/71
[2018-04-10 19:25] VITALS: BP 102/67
[2018-04-11 06:23] LABS: HEMATOCRIT 25.9 % (42.0-52.0); HEMOGLOBIN 8.9 gm/dL (14.0-18.0); MCH 30.3 pg (26.0-34.0); MCHC 34.2 g/dL (28.0-37.0); MCV 88.6 fL (80.0-100.0); RBC 2.92 mil/uL (4.50-6.00); RDW 13.5 % (10.5-14.5); WBC 4.2 thou/uL (4.0-11.0)
[2018-04-11 06:31] LABS: CALCIUM 8.4 mg/dL (8.5-10.1); CREATININE 0.9 mg/dL (0.7-1.3); MAGNESIUM 1.9 mg/dL (1.8-2.4); POTASSIUM 3.9 mmol/L (3.5-5.1)
[2018-04-11 08:37] VITALS: BP 113/67
[2018-04-11 16:47] VITALS: BP 113/67
[2018-04-11 16:50] VITALS: BP 113/67
[2018-04-11 20:25] VITALS: BP 109/72
[2018-04-12 03:50] LABS: CALCIUM 8.5 mg/dL (8.5-10.1); POTASSIUM 3.9 mmol/L (3.5-5.1)
[2018-04-12 04:39] LABS: HEMATOCRIT 26.7 % (42.0-52.0); HEMOGLOBIN 9.1 gm/dL (14.0-18.0); MCH 30.1 pg (26.0-34.0); MCHC 34.1 g/dL (28.0-37.0); MCV 88.3 fL (80.0-100.0); RBC 3.02 mil/uL (4.50-6.00); RDW 13.4 % (10.5-14.5); WBC 5.3 thou/uL (4.0-11.0)
[2018-04-12 07:00] VITALS: BP 109/72
[2018-04-12] MEDS ORDERED: IRON325 PO (10:43)
[2018-04-12] MEDS ORDERED: NOVOLOG100 UNIT/1 SUBQ (10:43)
[2018-04-12] MEDS ORDERED: COLACE100 MG PO (10:43)
[2018-04-12] MEDS ORDERED: VITAMIN D1000 UNI1 PO (10:43)
[2018-04-12] MEDS ORDERED: MIRALAX17 GM PO (10:43)
[2018-04-12] MEDS ORDERED: VITAMIN B122500 MCG PO (10:43)
[2018-04-12] MEDS ORDERED: PERCOCET 5-3251 EACH PO (10:44)
[2018-04-12 10:49] VITALS: BP 113/67
[2018-04-12 11:26] VITALS: BP 113/67
[2018-04-12 11:28] VITALS: BP 113/67
[2018-04-12 11:35] VITALS: BP 113/67
[2018-04-12 12:06] VITALS: BP 113/67
== END 2018-04-12 15:00 | disposition home health service (06) | DRG 638 ==
PROVIDERS: Internal Medicine; Nurse Practitioner Family; Physical Medicine & Rehabilitation
DX: E11.69 Type 2 diabetes mellitus with other specified complication (principal); M86.8X7 Other osteomyelitis, ankle and foot; E44.0 Moderate protein-calorie malnutrition; D62 Acute posthemorrhagic anemia; R53.81 Other malaise; Z89.512 Acquired absence of left leg below knee; E11.65 Type 2 diabetes mellitus with hyperglycemia; R26.9 Unspecified abnormalities of gait and mobility; E11.42 Type 2 diabetes mellitus with diabetic polyneuropathy; G47.33 Obstructive sleep apnea (adult) (pediatric); I10 Essential (primary) hypertension; K21.9 Gastro-esophageal reflux disease without esophagitis; E78.5 Hyperlipidemia, unspecified; E55.9 Vitamin D deficiency, unspecified; E53.8 Deficiency of other specified B group vitamins; G31.84 Mild cognitive impairment of uncertain or unknown etiology; E11.51 Type 2 diabetes mellitus with diabetic peripheral angiopathy without gangrene; D47.3 Essential (hemorrhagic) thrombocythemia; Z99.81 Dependence on supplemental oxygen; Z88.0 Allergy status to penicillin; Z88.8 Allergy status to other drugs, medicaments and biological substances; Z82.49 Family history of ischemic heart disease and other diseases of the circulatory system; Z80.8 Family history of malignant neoplasm of other organs or systems; Z89.422 Acquired absence of other left toe(s); Z68.21 Body mass index [BMI] 21.0-21.9, adult
CPT/HCPCS: 10112

== ENCOUNTER 2018-07-05 13:10 | Emergency (ER) | payer OTHER ==
[~2018-07-05] VITALS: Ht 170.2 cm; Wt 74.8 kg
--- NOTE | ~2018-07-05 | EKG ---
[place] [address] [facility] [place] [address] ELECTROCARDIOGRAM REPORT Name: RACHELLE STEELE [id number] Admission: 07/05/18 Attend Phys: Discharge: 07/05/18 Date of : 55 Report #: [id number] THIS REPORT FOR: //name// [facility] ED Test Date: 2018-07-05 Test Time: 13:22:03 Pat Name: RACHELLE STEELE Department: Room: Gender: M Rn Intern: [facility] : 1955 Requested By: Josr Guzman Order Number: [id number] MD: Ko Machado Measurements Intervals [place] Rate: 82 P: 66 NH: 245 QRS: 6 QRSD: 93 T: 48 QT: 371 QTc: 434 Interpretive Statements Sinus rhythm Prolonged NH interval Abnormal R-wave progression, early transition Compared to ECG 03/29/2018 15:22:20 First degree AV block now present Electronically Signed On 07-06-2018 8:06:02 CDT by Ko Machado [email or web address] <ELECTRONICALLY SIGNED> By: Ko Machado MD, [facility] 07/06/18 0806 1322 132 Ko Machado MD, [facility] /EPI
[~2018-07-05 13:10] MED LIST changes: +COLACE100 MG PO; +IRON325 PO; +MIRALAX17 GM PO; +NOVOLOG100 UNIT/1 SUBQ; +PERCOCET 5-3251 EACH PO; +VITAMIN B122500 MCG PO; +VITAMIN D1000 UNI1 PO
[2018-07-05] MEDS ORDERED: NORFLEX100 MG PO (13:48)
[2018-07-05] MEDS ORDERED: NAPROXEN375 MG PO (13:48)
[2018-07-05 13:56] LABS: ABSOLUTE NEUTROPHILS 1.6 thou/uL (1.4-8.2); BASOPHILS 0.7 % (0.0-2.0); EOSINOPHILS 2.9 % (0.0-3.0); HEMATOCRIT 35.8 % (42.0-52.0); HEMOGLOBIN 12.1 gm/dL (14.0-18.0); LYMPHOCYTES 47.8 % (24.0-44.0); MCHC 33.8 g/dL (28.0-37.0); MCV 91.6 fL (80.0-100.0); MONOCYTES 6.4 % (1.0-8.0); PLATELET COUNT 260 thou/uL (150-400); POLYS 42.2 % (36.0-66.0); RDW 14.4 % (10.5-14.5); WBC 3.9 thou/uL (4.0-11.0)
[2018-07-05 14:01] LABS: ANION GAP 8 mmol/L (7-16); BUN 15 mg/dL (7-18); CALCIUM 8.9 mg/dL (8.5-10.1); CHLORIDE 102 mmol/L (98-107); CO2 28 mmol/L (21-32); CREATININE 1.1 mg/dL (0.7-1.3); GLUCOSE 270 mg/dL (74-106); POTASSIUM 4.3 mmol/L (3.5-5.1); SODIUM 138 mmol/L (136-145)
[2018-07-05 14:10] LABS: ALBUMIN 3.3 g/dL (3.4-5.0); MAGNESIUM 1.8 mg/dL (1.8-2.4); SGOT 21 U/L (15-37); SGPT 19 U/L (30-65); TOTAL BILIRUBIN 0.4 mg/dL (<0.1-1.0); TOTAL PROTEIN 7.3 g/dL (6.4-8.2); TROPONIN-I <0.06 ng/mL (<0.06)
== END 2018-07-05 15:48 | disposition home or self-care (01) ==
LOC: ER 13:10
PROVIDERS: Emergency Medicine
DX: J06.9 Acute upper respiratory infection, unspecified (principal); R07.89 Other chest pain; M25.511 Pain in right shoulder; I10 Essential (primary) hypertension; E11.9 Type 2 diabetes mellitus without complications; K21.9 Gastro-esophageal reflux disease without esophagitis; G47.30 Sleep apnea, unspecified; Z79.4 Long term (current) use of insulin; Z88.0 Allergy status to penicillin; Z88.8 Allergy status to other drugs, medicaments and biological substances

== ENCOUNTER → 2018-07-12 | Outpatient (CLI) | payer OTHER ==
[~2018-07-12] MED LIST changes: +NAPROXEN375 MG PO; +NORFLEX100 MG PO
[2018-07-12 12:47] LABS: ALBUMIN 3.6 g/dL (3.4-5.0); ANION GAP 5 mmol/L (7-16); BUN 15 mg/dL (7-18); CALCIUM 8.6 mg/dL (8.5-10.1); CHLORIDE 104 mmol/L (98-107); CHOLESTEROL 187 mg/dL (<200); CO2 29 mmol/L (21-32); GLUCOSE 248 mg/dL (74-106); HDL CHOLESTEROL 72 mg/dL (>40); LDL CHOLESTEROL 101 mg/dL (<100); POTASSIUM 4.4 mmol/L (3.5-5.1); SGOT 17 U/L (15-37); SGPT 20 U/L (30-65); SODIUM 138 mmol/L (136-145); TC:HDL 2.6 Ratio (Not establshd); TOTAL BILIRUBIN 0.4 mg/dL (<0.1-1.0); TOTAL PROTEIN 6.9 g/dL (6.4-8.2); TRIGLYCERIDE 74 mg/dL (<150); VLDL 15 mg/dL (<40)
[2018-07-12 19:07] LABS: GLYCOHEMOGLOBIN (HGB A1C) 9.8 % (4.8-5.6)
== END ==
LOC: RAD 11:51
PROVIDERS: Family Medicine
DX: E11.8 Type 2 diabetes mellitus with unspecified complications (principal); R91.1 Solitary pulmonary nodule; R93.89 Abnormal findings on diagnostic imaging of other specified body structures; Z79.4 Long term (current) use of insulin

== ENCOUNTER → 2018-08-16 | Outpatient (CLI) | payer OTHER | LOC: CAT 08:51 | DX: R91.8 Other nonspecific abnormal finding of lung field (principal); I70.0 Atherosclerosis of aorta ==

== ENCOUNTER 2019-08-12 14:43 | Emergency (ER) | payer OTHER ==
[~2019-08-12] VITALS: Ht 170.2 cm; Wt 78.0 kg
[2019-08-12 15:13] LABS: ABSOLUTE NEUTROPHILS 3.3 thou/uL (1.4-8.2); BASOPHILS 0.5 % (0.0-2.0); HEMATOCRIT 33.1 % (42.0-52.0); HEMOGLOBIN 10.8 gm/dL (14.0-18.0); LYMPHOCYTES 34.6 % (24.0-44.0); MCH 29.3 pg (26.0-34.0); MCHC 32.5 g/dL (28.0-37.0); MCV 90.3 fL (80.0-100.0); MONOCYTES 7.6 % (1.0-8.0); PLATELET COUNT 258 thou/uL (150-400); POLYS 52.3 % (36.0-66.0); RBC 3.67 mil/uL (4.50-6.00); RDW 16.8 % (10.5-14.5); WBC 6.4 thou/uL (4.0-11.0)
[2019-08-12 15:14] LABS: POTASSIUM 3.6 mmol/L (3.5-5.1)
[2019-08-12 15:20] LABS: ALBUMIN 3.1 g/dL (3.4-5.0); TOTAL BILIRUBIN 0.3 mg/dL (<0.1-1.0); TOTAL PROTEIN 7.4 g/dL (6.4-8.2)
[2019-08-12 17:28] LABS: URINE BILIRUBIN NEGATIVE (Negative); URINE BLOOD TRACE (Negative); URINE CLARITY CLEAR; URINE COLOR YELLOW; URINE GLUCOSE-RANDOM* NEGATIVE (Negative); URINE KETONES NEGATIVE (Negative); URINE LEUKOCYTES-REFLEX NEGATIVE (Negative); URINE NITRITE-REFLEX NEGATIVE (Negative); URINE PROTEIN (DIPSTICK) TRACE (Negative); URINE UROBILINOGEN 0.2 E.U./dl (0.2-1.0)
[2019-08-12 18:37] VITALS: BP 149/77
--- NOTE | 2019-08-12 21:54 | EKG ---
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
== END 2019-08-12 18:40 | disposition home or self-care (01) ==
LOC: ER 14:43
PROVIDERS: Physician Assistant
DX: E11.649 Type 2 diabetes mellitus with hypoglycemia without coma (principal); J44.9 Chronic obstructive pulmonary disease, unspecified; I10 Essential (primary) hypertension; G47.30 Sleep apnea, unspecified; Z88.0 Allergy status to penicillin; Z88.8 Allergy status to other drugs, medicaments and biological substances

== ENCOUNTER 2019-08-21 14:08 | Emergency (ER) | payer OTHER ==
[~2019-08-21] VITALS: Ht 170.2 cm; Wt 79.4 kg
[2019-08-21 15:01] LABS: ABSOLUTE NEUTROPHILS 4.3 thou/uL (1.4-8.2); BASOPHILS 0.7 % (0.0-2.0); EOSINOPHILS 3.8 % (0.0-3.0); HEMATOCRIT 33.5 % (42.0-52.0); HEMOGLOBIN 11.1 gm/dL (14.0-18.0); MCH 29.6 pg (26.0-34.0); MCHC 33.1 g/dL (28.0-37.0); MCV 89.2 fL (80.0-100.0); MONOCYTES 7.5 % (1.0-8.0); PLATELET COUNT 302 thou/uL (150-400); RBC 3.75 mil/uL (4.50-6.00); RDW 16.8 % (10.5-14.5); WBC 6.7 thou/uL (4.0-11.0)
[2019-08-21 15:10] LABS: POTASSIUM 4.5 mmol/L (3.5-5.1)
[2019-08-21 15:16] LABS: TOTAL BILIRUBIN 0.3 mg/dL (<0.1-1.0); TOTAL PROTEIN 7.8 g/dL (6.4-8.2)
[2019-08-21 16:29] VITALS: BP 165/99
== END 2019-08-21 16:29 | disposition home or self-care (01) ==
LOC: ER 14:08
PROVIDERS: Nurse Practitioner
DX: T87.81 Dehiscence of amputation stump (principal); E11.9 Type 2 diabetes mellitus without complications; I10 Essential (primary) hypertension; K21.9 Gastro-esophageal reflux disease without esophagitis; G47.30 Sleep apnea, unspecified; Z79.4 Long term (current) use of insulin; Z88.0 Allergy status to penicillin; Z88.8 Allergy status to other drugs, medicaments and biological substances

== ENCOUNTER 2019-08-24 18:50 | Emergency (ER) | payer OTHER ==
[~2019-08-24] VITALS: Ht 170.2 cm; Wt 77.1 kg
[2019-08-24 19:28] LABS: ABSOLUTE NEUTROPHILS 7.5 thou/uL (1.4-8.2); BASOPHILS 0.8 % (0.0-2.0); EOSINOPHILS 2.5 % (0.0-3.0); HEMATOCRIT 34.2 % (42.0-52.0); HEMOGLOBIN 11.3 gm/dL (14.0-18.0); LYMPHOCYTES 16.4 % (24.0-44.0); MCH 29.6 pg (26.0-34.0); MCV 89.5 fL (80.0-100.0); MONOCYTES 8.1 % (1.0-8.0); PLATELET COUNT 297 thou/uL (150-400); POLYS 72.2 % (36.0-66.0); RBC 3.82 mil/uL (4.50-6.00); RDW 16.5 % (10.5-14.5); WBC 10.4 thou/uL (4.0-11.0)
[2019-08-24 19:33] LABS: ANION GAP 12 mmol/L (7-16); BUN 25 mg/dL (7-18); CALCIUM 9.5 mg/dL (8.5-10.1); CHLORIDE 101 mmol/L (98-107); CO2 23 mmol/L (21-32); CREATININE 1.2 mg/dL (0.7-1.3); GLUCOSE 257 mg/dL (74-106); SODIUM 136 mmol/L (136-145)
[2019-08-24 19:39] LABS: ALBUMIN 2.9 g/dL (3.4-5.0); DIRECT BILIRUBIN < 0.1 mg/dL (<0.1-0.2); LIPASE 64 U/L (73-393); SGOT 17 U/L (15-37); SGPT 22 U/L (30-65); TOTAL BILIRUBIN 0.3 mg/dL (<0.1-1.0); TOTAL PROTEIN 8.1 g/dL (6.4-8.2)
[2019-08-24] MEDS ORDERED: DOXYCYCLINE 10100 M2 PO (21:11)
[2019-08-24 21:24] VITALS: BP 161/81
== END 2019-08-24 21:29 | disposition home or self-care (01) ==
LOC: ER 18:50
PROVIDERS: Nurse Practitioner
DX: T81.30XA Disruption of wound, unspecified, initial encounter (principal); I10 Essential (primary) hypertension; E11.9 Type 2 diabetes mellitus without complications; K21.9 Gastro-esophageal reflux disease without esophagitis; G47.30 Sleep apnea, unspecified; Z79.4 Long term (current) use of insulin; Z89.511 Acquired absence of right leg below knee

== ENCOUNTER → 2019-08-28 | Outpatient (CLI) | payer OTHER ==
[~2019-08-28] MED LIST changes: +DOXYCYCLINE 10100 M2 PO
== END ==
LOC: HYPER 13:36
DX: T87.81 Dehiscence of amputation stump (principal); E11.622 Type 2 diabetes mellitus with other skin ulcer; L97.812 Non-pressure chronic ulcer of other part of right lower leg with fat layer exposed; E11.69 Type 2 diabetes mellitus with other specified complication; M86.8X7 Other osteomyelitis, ankle and foot; E11.59 Type 2 diabetes mellitus with other circulatory complications; E11.319 Type 2 diabetes mellitus with unspecified diabetic retinopathy without macular edema; R26.9 Unspecified abnormalities of gait and mobility; I10 Essential (primary) hypertension; J45.909 Unspecified asthma, uncomplicated; K21.9 Gastro-esophageal reflux disease without esophagitis; Z79.4 Long term (current) use of insulin; Z87.891 Personal history of nicotine dependence; Y83.5 Amputation of limb(s) as the cause of abnormal reaction of the patient, or of later complication, without mention of misadventure at the time of the procedure

== ENCOUNTER → 2019-09-12 | Outpatient (CLI) | payer OTHER | LOC: HYPER 10:19 | DX: T87.81 Dehiscence of amputation stump (principal); E11.622 Type 2 diabetes mellitus with other skin ulcer; L97.811 Non-pressure chronic ulcer of other part of right lower leg limited to breakdown of skin; E11.69 Type 2 diabetes mellitus with other specified complication; M86.8X7 Other osteomyelitis, ankle and foot; E11.59 Type 2 diabetes mellitus with other circulatory complications; I10 Essential (primary) hypertension; J45.909 Unspecified asthma, uncomplicated; R26.9 Unspecified abnormalities of gait and mobility; K21.9 Gastro-esophageal reflux disease without esophagitis; Z87.891 Personal history of nicotine dependence; Y83.5 Amputation of limb(s) as the cause of abnormal reaction of the patient, or of later complication, without mention of misadventure at the time of the procedure ==

== ENCOUNTER → 2019-10-03 | Outpatient (CLI) | payer OTHER | LOC: HYPER 10:20 | DX: T87.81 Dehiscence of amputation stump (principal); E11.622 Type 2 diabetes mellitus with other skin ulcer; L97.811 Non-pressure chronic ulcer of other part of right lower leg limited to breakdown of skin; E11.51 Type 2 diabetes mellitus with diabetic peripheral angiopathy without gangrene; L84 Corns and callosities; I10 Essential (primary) hypertension; E11.69 Type 2 diabetes mellitus with other specified complication; M86.8X7 Other osteomyelitis, ankle and foot; J45.909 Unspecified asthma, uncomplicated; R26.9 Unspecified abnormalities of gait and mobility; Z87.891 Personal history of nicotine dependence; Z79.4 Long term (current) use of insulin; Z79.82 Long term (current) use of aspirin; Z89.422 Acquired absence of other left toe(s); Z89.512 Acquired absence of left leg below knee; Y83.5 Amputation of limb(s) as the cause of abnormal reaction of the patient, or of later complication, without mention of misadventure at the time of the procedure ==

== ENCOUNTER → 2019-10-24 | Outpatient (CLI) | payer OTHER | LOC: HYPER 10:03 | DX: T87.81 Dehiscence of amputation stump (principal); E11.622 Type 2 diabetes mellitus with other skin ulcer; L97.811 Non-pressure chronic ulcer of other part of right lower leg limited to breakdown of skin; E11.51 Type 2 diabetes mellitus with diabetic peripheral angiopathy without gangrene; L84 Corns and callosities; R26.9 Unspecified abnormalities of gait and mobility; E11.69 Type 2 diabetes mellitus with other specified complication; M86.8X7 Other osteomyelitis, ankle and foot; J45.909 Unspecified asthma, uncomplicated; I10 Essential (primary) hypertension; Z87.891 Personal history of nicotine dependence; Z79.82 Long term (current) use of aspirin; Z79.4 Long term (current) use of insulin; Z89.512 Acquired absence of left leg below knee; Z89.422 Acquired absence of other left toe(s); Y83.5 Amputation of limb(s) as the cause of abnormal reaction of the patient, or of later complication, without mention of misadventure at the time of the procedure ==

== ENCOUNTER → 2019-11-07 | Outpatient (CLI) | payer OTHER | LOC: HYPER 10:26 | DX: T87.81 Dehiscence of amputation stump (principal); E11.622 Type 2 diabetes mellitus with other skin ulcer; L97.811 Non-pressure chronic ulcer of other part of right lower leg limited to breakdown of skin; E11.51 Type 2 diabetes mellitus with diabetic peripheral angiopathy without gangrene; R26.9 Unspecified abnormalities of gait and mobility; E11.69 Type 2 diabetes mellitus with other specified complication; M86.172 Other acute osteomyelitis, left ankle and foot; J45.909 Unspecified asthma, uncomplicated; I10 Essential (primary) hypertension; Z87.891 Personal history of nicotine dependence; Z79.4 Long term (current) use of insulin; Z79.82 Long term (current) use of aspirin; Z89.422 Acquired absence of other left toe(s); Z89.512 Acquired absence of left leg below knee; Y83.5 Amputation of limb(s) as the cause of abnormal reaction of the patient, or of later complication, without mention of misadventure at the time of the procedure ==

== ENCOUNTER → 2019-11-23 | Outpatient (CLI) | payer OTHER | LOC: HYPER 10:00 | DX: T87.81 Dehiscence of amputation stump (principal); E11.622 Type 2 diabetes mellitus with other skin ulcer; L97.811 Non-pressure chronic ulcer of other part of right lower leg limited to breakdown of skin; S81.811A Laceration without foreign body, right lower leg, initial encounter; E11.51 Type 2 diabetes mellitus with diabetic peripheral angiopathy without gangrene; E11.69 Type 2 diabetes mellitus with other specified complication; M86.8X7 Other osteomyelitis, ankle and foot; L84 Corns and callosities; I10 Essential (primary) hypertension; R26.9 Unspecified abnormalities of gait and mobility; J45.909 Unspecified asthma, uncomplicated; Z89.512 Acquired absence of left leg below knee; Z89.422 Acquired absence of other left toe(s); Z87.891 Personal history of nicotine dependence; Z79.82 Long term (current) use of aspirin; Z79.4 Long term (current) use of insulin; Y83.5 Amputation of limb(s) as the cause of abnormal reaction of the patient, or of later complication, without mention of misadventure at the time of the procedure; X58.XXXA Exposure to other specified factors, initial encounter; Y93.89 Activity, other specified; Y92.89 Other specified places as the place of occurrence of the external cause; Y99.8 Other external cause status ==

== ENCOUNTER 2019-12-12 15:49 | Emergency (ER) | payer OTHER ==
[~2019-12-12] VITALS: Ht 170.2 cm; Wt 81.7 kg
[2019-12-12 16:44] LABS: ABSOLUTE NEUTROPHILS 3.2 thou/uL (1.4-8.2); BASOPHILS 0.9 % (0.0-2.0); EOSINOPHILS 4.1 % (0.0-3.0); HEMATOCRIT 38.8 % (42.0-52.0); HEMOGLOBIN 13.1 gm/dL (14.0-18.0); LYMPHOCYTES 30.6 % (24.0-44.0); MCH 31.3 pg (26.0-34.0); MCHC 33.7 g/dL (28.0-37.0); MCV 92.7 fL (80.0-100.0); MONOCYTES 7.2 % (1.0-8.0); PLATELET COUNT 298 thou/uL (150-400); POLYS 57.2 % (36.0-66.0); RBC 4.19 mil/uL (4.50-6.00); RDW 14.2 % (10.5-14.5); WBC 5.5 thou/uL (4.0-11.0)
[2019-12-12 16:57] LABS: CALCIUM 9.6 mg/dL (8.5-10.1); CREATININE 1.3 mg/dL (0.7-1.3); MAGNESIUM 2.4 mg/dL (1.8-2.4); POTASSIUM 4.6 mmol/L (3.5-5.1)
[2019-12-12 17:28] VITALS: BP 138/87
--- NOTE | 2019-12-13 08:08 | EKG ---
[facility] [address] ELECTROCARDIOGRAM REPORT Name: RACHELLE STEELE Room #: [facility]#: [id number] Admission: 12/12/19 Attend Phys: Discharge: 12/12/19 Date of : 55 Report #: [id number] THIS REPORT FOR: cc: Katheryn Helton MD, Nora P. MD Lundgren, Craig H. 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: [facility] : 1955 Requested By: Evangelista Moya Order Number: [id number] MD: Ko Machado Measurements Intervals [place] Rate: 88 P: 46 MN: 264 QRS: 7 QRSD: 96 T: 38 QT: 365 QTc: 442 Interpretive Statements Sinus rhythm Prolonged MN interval Compared to ECG 08/12/2019 14:47:24 No significant changes Electronically Signed On 12-13-2019 8:06:48 CDT by Ko Machado [email or web address] <ELECTRONICALLY SIGNED> By: Ko Machado MD, [facility] 12/13/19 0806 1646 1646 Ko Machado MD, [facility] /EPI
== END 2019-12-12 17:28 | disposition home or self-care (01) ==
LOC: ER 15:49
PROVIDERS: Emergency Medicine
DX: J06.9 Acute upper respiratory infection, unspecified (principal); E11.9 Type 2 diabetes mellitus without complications; I10 Essential (primary) hypertension; K21.9 Gastro-esophageal reflux disease without esophagitis; G47.30 Sleep apnea, unspecified; Z79.4 Long term (current) use of insulin; Z88.0 Allergy status to penicillin; Z88.8 Allergy status to other drugs, medicaments and biological substances

== ENCOUNTER → 2019-12-27 | Outpatient (CLI) | payer OTHER | LOC: HYPER 10:56 | DX: T87.81 Dehiscence of amputation stump (principal); S81.811D Laceration without foreign body, right lower leg, subsequent encounter; E11.622 Type 2 diabetes mellitus with other skin ulcer; L97.521 Non-pressure chronic ulcer of other part of left foot limited to breakdown of skin; E11.69 Type 2 diabetes mellitus with other specified complication; M86.8X7 Other osteomyelitis, ankle and foot; E11.59 Type 2 diabetes mellitus with other circulatory complications; I10 Essential (primary) hypertension; R26.9 Unspecified abnormalities of gait and mobility; J45.909 Unspecified asthma, uncomplicated; K21.9 Gastro-esophageal reflux disease without esophagitis; Z87.891 Personal history of nicotine dependence; Z89.512 Acquired absence of left leg below knee; X58.XXXD Exposure to other specified factors, subsequent encounter; Y83.5 Amputation of limb(s) as the cause of abnormal reaction of the patient, or of later complication, without mention of misadventure at the time of the procedure ==

== ENCOUNTER → 2020-01-10 | Outpatient (CLI) | payer OTHER | LOC: HYPER 10:44 | DX: T87.81 Dehiscence of amputation stump (principal); E11.622 Type 2 diabetes mellitus with other skin ulcer; L97.811 Non-pressure chronic ulcer of other part of right lower leg limited to breakdown of skin; S81.811D Laceration without foreign body, right lower leg, subsequent encounter; E11.59 Type 2 diabetes mellitus with other circulatory complications; E11.69 Type 2 diabetes mellitus with other specified complication; M86.8X7 Other osteomyelitis, ankle and foot; I10 Essential (primary) hypertension; J45.909 Unspecified asthma, uncomplicated; K21.9 Gastro-esophageal reflux disease without esophagitis; Z98.49 Cataract extraction status, unspecified eye; Z87.891 Personal history of nicotine dependence; X58.XXXD Exposure to other specified factors, subsequent encounter; Y83.5 Amputation of limb(s) as the cause of abnormal reaction of the patient, or of later complication, without mention of misadventure at the time of the procedure ==

== ENCOUNTER → 2020-01-24 | Outpatient (CLI) | payer OTHER | LOC: HYPER 10:00 | DX: T87.81 Dehiscence of amputation stump (principal); E11.622 Type 2 diabetes mellitus with other skin ulcer; L97.811 Non-pressure chronic ulcer of other part of right lower leg limited to breakdown of skin; S81.811D Laceration without foreign body, right lower leg, subsequent encounter; E11.69 Type 2 diabetes mellitus with other specified complication; M86.8X8 Other osteomyelitis, other site; E11.59 Type 2 diabetes mellitus with other circulatory complications; I10 Essential (primary) hypertension; J45.909 Unspecified asthma, uncomplicated; K21.9 Gastro-esophageal reflux disease without esophagitis; Z87.891 Personal history of nicotine dependence; X58.XXXD Exposure to other specified factors, subsequent encounter; Y83.5 Amputation of limb(s) as the cause of abnormal reaction of the patient, or of later complication, without mention of misadventure at the time of the procedure ==

== ENCOUNTER → 2020-02-07 | Outpatient (CLI) | payer OTHER | LOC: HYPER 10:28 | DX: T81.31XD Disruption of external operation (surgical) wound, not elsewhere classified, subsequent encounter (principal); E11.622 Type 2 diabetes mellitus with other skin ulcer; L97.811 Non-pressure chronic ulcer of other part of right lower leg limited to breakdown of skin; E11.69 Type 2 diabetes mellitus with other specified complication; M86.8X7 Other osteomyelitis, ankle and foot; E11.59 Type 2 diabetes mellitus with other circulatory complications; R26.9 Unspecified abnormalities of gait and mobility; I10 Essential (primary) hypertension; J45.909 Unspecified asthma, uncomplicated; K21.9 Gastro-esophageal reflux disease without esophagitis; Z87.891 Personal history of nicotine dependence; Z89.511 Acquired absence of right leg below knee; Z89.512 Acquired absence of left leg below knee; Y83.8 Other surgical procedures as the cause of abnormal reaction of the patient, or of later complication, without mention of misadventure at the time of the procedure ==

== ENCOUNTER 2020-05-19 13:30 | Emergency (ER) | payer OTHER ==
[~2020-05-19] VITALS: Ht 170.2 cm; Wt 89.8 kg
--- NOTE | ~2020-05-19 | EMS ---
[address] [address] EMS Patient Care Report Name: RACHELLE STEELE Room #: DEP XIOMY Daigle#: [id number] Admission: 05/19/20 Attend Phys: Discharge: 05/19/20 Date of : 55 Report #: [id number] THIS REPORT FOR: //name// Report Transmitted: 05/20/2020 13:34 EMS Care Summary [facility] Incident [id number] @ 05/19/2020 12:49 Incident Location [address] [place] [address] Patient RACHELLE STEELE Male, 65 Years 1955 Patient Address [address] [place] [address] Patient Allergies Penicillin allergy, Patient Medications ASA, Insulin, Chief Complaint chest pain Disposition Transported No Lights/[place] Dispatch Reason Chest Pain (Non-Traumatic) Transported To [facility] Narrative DISPATCHED EMERGENT RESPONDED EMERGENT ON CHEST PAIN. DISPATCHED ADVISED PATIENT HAD TAKEN ASPIRIN ALREADY AND WOULD BE FOUND IN [place]ARAGE. ARRIVED ON SCENE WITHOUT INCIDNENT. UPON ARRIVAL PATIENT WAS FOUND ALERT AND ORIENTED X4 SEATED IN MOTORIZED WHEELCHAIR IN GARAGE COMPLAINING OF CHEST PAIN AND UNPRODUCTIVE COUGH. PATIENT STATED THAT THESE SYMPTOMS HAVE BEEN GOING ON FOR 2 DAYS. PATIENT REPORTS CHEST [address] [address] EMS Patient Care Report Name: RACHELLE STEELE Room #: DEP NikolayChinedu#: [id number] Admission: 05/19/20 Attend Phys: Discharge: 05/19/20 Date of : 55 Report #: [id number] PAIN COMES AND GOES WITH RESPIRATIONS AND HAS PAIN UPON PALPATION, PAIN REPORTED TO BE SHARP PAIN IN RIGHT SIDE OF CHEST. PATIENT DOES STATE HE TOOK HIS DAILY ASPIRIN EARLIER IN THE MORNING AND HAS BEEN COMPLIANT WITH ALL MEDICATIONS. PATIENT REPORTS THAT HE HAS NOT BEEN RUNNING A FEVER, DENIES SHORTNESS OF BREATH, NAUSEA, VOMITING DIARRHEA. PATIENT DOES STATE THATS HES ALSO BEEN HAVING GENERALIZED ABDOMINAL PAIN FOR A FEW WEEKS AND HAS NOT HAD A BOWL MOVEMENT IN 2 MONTHS. PATIENT IS REQUESTING TRANSPORT TO [facility] FOR FURTHER CARE AND EVALUATION. PATIENT STATES SHE IS ABLE TO PIVOT WITH USE OF HIS PROSTHETICS AND IS ASSISTED AND PIVOTED ONTO STRETCHER, SECURED WITH ALL RESTRAINTS AND TAKEN TO AMBULANCE. EN ROUTE PATIENT WAS ADVISED THAT HIS BLOOD SUGAR WAS READING "HIGH" ON GLUCOMETER. PATIENT REPORTS HE LAST TOOK 50 UNITS OF INSULIN THE PREVIOUS NIGHT PRIOR TO GOING TO BED. PATIENT DENIES ANY OTHER COMPLAINTS AT THIS TIME. VITALS MONITORED CONTINUOUSLY THROUGHOUT TRANSPORT. NO NEW COMPLAINTS REPORTED, NO CHANGE IN CURRENT COMPLAINTS. RADIO REPORT CALLED TO ED. UPON ARRIVAL TO ED PATIENT IS TAKEN TO ED ROOM 4 WHERE PATIENT REPORT IS GIVEN DIRECTLY TO RN AT BEDSIDE. PATIENT IS ASSISTED ONTO TO BED FROM STRETCHER. PATIENT CARE TRANSFERRED DIRECTLY TO RN AT BEDSIDE. PATIENT BELONGINGS (MEDICATIONS) LEFT WITH PATIENT AT TRANSFER OF CARE. PATIENT IN STABLE CONDITION AT TRANSFER OF CARE. Initial Vitals @13:24P: 69,CO: 4,SpO2: 97, @13:02 @13:14P: 68,CO: 3,SpO2: 97, @13:24P: 69,CO: 4,SpO2: 96, @13:19P: 69,CO: 4,SpO2: 93, @13:04P: 71,CO: 4,SpO2: 98, @13:09P: 70,R: 18,Pain: 10/10,GCS: 15,SpO2: 98, @13:22P: 68,R: 18,BP: 135/79,GCS: 15,Glucose: -2,CO: 4,SpO2: 98,Revised Trauma: 12, @13:01P: 70,R: 18,BP: 192/95,GCS: 15,Glucose: -2,CO: 7,SpO2: 98,Revised Trauma: 12, @13:09P: 68,CO: 3,SpO2: 98, @13:02P: 69,CO: 5,SpO2: 98, @13:02 @13:01P: 71,CO: 6,SpO2: 98, @13:02P: 69,CO: 4,SpO2: 97, Assessments @12:57MENTAL:Person Oriented,Time Oriented,Event Oriented,Place Oriented,SKIN:HEENT:Eyes: Left Pupil: 4-mm,Head/Face: No Abnormalities,LUNG SOUNDS:Right Upper: Tenderness,Left Upper: Tenderness,Left Lower: Tenderness,Right Lower: Tenderness,General: No Abnormalities,ABDOMEN:Right [address] [address] EMS Patient Care Report Name: RACHELLE STEELE Room #: DEP XIOMY Daigle#: [id number] Admission: 05/19/20 Attend Phys: Discharge: 05/19/20 Date of : 55 Report #: [id number] Upper: Tenderness,Left Upper: Tenderness,Left Lower: Tenderness,Right Lower: Tenderness,General: No Abnormalities,PELVIS//GI:EXTREMITIES:Capillary Refill: Right Upper: < 2 Sec,PULSE:Radial: 2+ Normal,NEURO:No Abnormalities, Impression Respiratory Synctial Virus (RSV) Procedures @13:03Normal Saline (.9% NaCl) - Cold 400cc (18 ga) Site: Antecubital-LeftResponse: UnchangedSucceeded@13:0212-Lead ECG@13:0212-Lead ECG Timeline 12:48,Call Received 12:48,Psap Call 12:49,Dispatched 12:51,En Route 12:54,Initial Responder On Scene 12:54,On Scene 12:56,At Patient 13:01,BP: / M,PULSE: 71,RR: R,SPO2: 98 Ox,ETCO2: ,BG: ,PAIN: ,GCS: , 13:01,BP: 192/95 M,PULSE: 70,RR: 18 R,SPO2: 98 Ox,ETCO2: ,BG: -2,PAIN: ,GCS: 15, 13:02,12-Lead ECG, 13:02,BP: / M,PULSE: ,RR: R,SPO2: Ox,ETCO2: ,BG: ,PAIN: ,GCS: , 13:02,BP: / M,PULSE: 69,RR: R,SPO2: 98 Ox,ETCO2: ,BG: ,PAIN: ,GCS: , 13:02,12-Lead ECG, 13:02,BP: / M,PULSE: ,RR: R,SPO2: Ox,ETCO2: ,BG: ,PAIN: ,GCS: , 13:02,BP: / M,PULSE: 69,RR: R,SPO2: 97 Ox,ETCO2: ,BG: ,PAIN: ,GCS: , 13:03,Normal Saline (.9% NaCl) - Cold 400cc 18 ga Site: Antecubital-Left,Response: UnchangedSucceeded, 13:04,BP: / M,PULSE: 71,RR: R,SPO2: 98 Ox,ETCO2: ,BG: ,PAIN: ,GCS: , 13:06,Depart Scene 13:09,BP: / M,PULSE: 68,RR: R,SPO2: 98 Ox,ETCO2: ,BG: ,PAIN: ,GCS: , 13:09,BP: / M,PULSE: 70,RR: 18 R,SPO2: 98 Ox,ETCO2: ,BG: ,PAIN: 10,GCS: 15, 13:14,BP: / M,PULSE: 68,RR: R,SPO2: 97 Ox,ETCO2: ,BG: ,PAIN: ,GCS: , 13:19,BP: / M,PULSE: 69,RR: R,SPO2: 93 Ox,ETCO2: ,BG: ,PAIN: ,GCS: , 13:22,BP: 135/79 M,PULSE: 68,RR: 18 R,SPO2: 98 Ox,ETCO2: ,BG: -2,PAIN: ,GCS: 15, 13:24,BP: / M,PULSE: 69,RR: R,SPO2: 96 Ox,ETCO2: ,BG: ,PAIN: ,GCS: , 13:24,BP: / M,PULSE: 69,RR: R,SPO2: 97 Ox,ETCO2: ,BG: ,PAIN: ,GCS: , 13:26,At Destination 13:53,Call Closed Disclaimer v1.1 Copyright 2020 [employer] This EMS Care Summary contains data elements from the applicable legal record [address] [address] EMS Patient Care Report Name: RACHELLE STEELE Room #: [facility] Daigle#: [id number] Admission: 05/19/20 Attend Phys: Discharge: 05/19/20 Date of : 55 Report #: [id number] (which may be displayed differently). It is designed to provide pertinent information for the following purposes: continuity of care, clinical quality, and state data reporting. The complete legal record is available to ED staff and administrators of the receiving hospital in [facility]'s Patient Tracker. All data is provided "as is."
[2020-05-19 13:46] LABS: ABSOLUTE NEUTROPHILS 1.8 thou/uL (1.4-8.2); EOSINOPHILS 2.2 % (0.0-3.0); HEMATOCRIT 35.2 % (42.0-52.0); HEMOGLOBIN 11.7 gm/dL (14.0-18.0); LYMPHOCYTES 33.7 % (24.0-44.0); MCH 31.2 pg (26.0-34.0); MCHC 33.3 g/dL (28.0-37.0); MCV 93.7 fL (80.0-100.0); MONOCYTES 6.7 % (1.0-8.0); PLATELET COUNT 195 thou/uL (150-400); POLYS 56.4 % (36.0-66.0); RBC 3.76 mil/uL (4.50-6.00); WBC 3.1 thou/uL (4.0-11.0)
[2020-05-19 14:03] LABS: ALBUMIN 2.7 g/dL (3.4-5.0); ANION GAP 7 mmol/L (7-16); BUN 22 mg/dL (7-18); CALCIUM 7.7 mg/dL (8.5-10.1); CHLORIDE 97 mmol/L (98-107); CO2 28 mmol/L (21-32); CREATININE 1.3 mg/dL (0.7-1.3); POTASSIUM 4.1 mmol/L (3.5-5.1); SGOT 18 U/L (15-37); SGPT 22 U/L (30-65); SODIUM 132 mmol/L (136-145); TOTAL BILIRUBIN 0.2 mg/dL (0.2-1.0); TOTAL PROTEIN 6.9 g/dL (6.4-8.2); TROPONIN-I <0.06 ng/mL (<0.06)
[2020-05-19 14:08] LABS: GLUCOSE 526 mg/dL (74-106)
[2020-05-19] MEDS ORDERED: ZPAK PO (18:05)
[2020-05-19] MEDS ORDERED: PROMETH-CODEIN 65 ML PO (18:05)
[2020-05-19 18:55] VITALS: BP 178/87
--- NOTE | 2020-05-20 10:15 | EKG ---
[facility] [place] [address] ELECTROCARDIOGRAM REPORT Name: RACHELLE STEELE [facility] [id number] Admission: 05/19/20 Attend Phys: Discharge: 05/19/20 Date of : 55 Report #: [id number] THIS REPORT FOR: cc: Katheryn Helton MD, Nora P. 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
== END 2020-05-19 18:57 | disposition home or self-care (01) ==
LOC: ER 13:30
PROVIDERS: Physician Assistant
DX: U07.1 COVID-19 (principal); K59.00 Constipation, unspecified; J18.9 Pneumonia, unspecified organism; E11.65 Type 2 diabetes mellitus with hyperglycemia; I10 Essential (primary) hypertension; K21.9 Gastro-esophageal reflux disease without esophagitis; Z79.4 Long term (current) use of insulin; Z79.82 Long term (current) use of aspirin; Z79.899 Other long term (current) drug therapy; Z88.8 Allergy status to other drugs, medicaments and biological substances; Z88.0 Allergy status to penicillin

== ENCOUNTER 2020-05-27 17:14 | Emergency (ER) | payer OTHER ==
[~2020-05-27] VITALS: Ht 170.2 cm; Wt 88.5 kg
--- NOTE | ~2020-05-27 | EMS ---
[facility] [address] [place] [address] EMS Patient Care Report Name: RACHELLE STEELE Room #: PRE M.R.#: [id number] Admission: Attend Phys: Discharge: Date of : 55 Report #: [id number] THIS REPORT FOR: //name// Report Transmitted: 05/27/2020 17:04 EMS Care Summary [facility] Incident [id number] @ 05/27/2020 16:33 Incident Location [address] [place] [address] Patient RACHELLE STEELE Male, 65 Years 1955 Patient Address [address], [place] [address] Patient History Diabetes,Hypertension (HTN),Gastro-Esophageal Reflux Disease (GERD),Novel Coronavirus (COVID-19), Patient Allergies Penicillin allergy, Patient Medications Omeprazole, Atorvastatin, Amlodipine, Hydrochlorothiazide (Hctz), Chief Complaint Shortness of breath/ Weakness Disposition Transported No Lights/[place] Dispatch Reason Breathing Problem Transported To [facility] Narrative AOS to find patient laying in bed, family on scene states that he has been feeling increased shortness of breath as well as weakness over the past several days. Today though he started to feel increased shortness of breath due to his [facility] [address] [place] [address] EMS Patient Care Report Name: RACHELLE STEELE Room #: PRE [facility]#: [id number] Admission: Attend Phys: Discharge: Date of : 55 Report #: [id number] covid diagnosis. Patient has a long medical history due to his diabetes as well as hypertension. Here recently though he was seen by his physician who tested him and states that he currently has covid 19. He has been trying to rest at home but is noted to be in the decline according to family on scene. Due to this 911 is soon called to the location. Upon our arrival patient is seen laying in bed, he is A/Ox4 and able to answer our questions appropriately. He is warm to the touch and is noted to be very weak. He is then moved from his location in bed and then moved to a stair chair where he is then sat down and secured. At that time is when family on scene then told us that patient is covid positive since wednesday. Patient is then moved from the bedroom to the cot that was waiting outside and then secured via x4 safety straps and then moved to the unit and loaded in. Once inside the unit he is placed fully on the monitor and vitals are obtained and found that his oxygen saturation is lower than normal, he is soon placed on oxygen via NC at 2lpm. An IV is also soon established and secured, blood sugar is checked and found to be higher than normal. While en route to the ED patient was able to rest comfortably and had no further complaints nor complications, care was transferred to ED staff upon our arrival to the facility. Initial Vitals @16:51Glucose: 345, @16:49P: 85, @16:52P: 84,BP: 160/81,SpO2: 100, @16:46P: 89,CO: 3,SpO2: 95, @16:57P: 82,BP: 149/104,CO: 3,SpO2: 99, @17:02P: 81,BP: 146/78,CO: 3,SpO2: 99, @16:47P: 87,BP: 164/88,GCS: 15,SpO2: 90, @17:07P: 80,BP: 134/85,GCS: 15,CO: 4,SpO2: 99, Assessments @16:48MENTAL:Person Oriented,Time Oriented,Event Oriented,Place Oriented,SKIN:Hot,HEENT:LUNG SOUNDS:ABDOMEN:PELVIS//GI:EXTREMITIES:PULSE:NEURO:No Abnormalities,@16:57MENTAL:Place Oriented,Time Oriented,Event Oriented,Person Oriented,SKIN:Hot,HEENT:LUNG SOUNDS:ABDOMEN:PELVIS//GI:EXTREMITIES:PULSE:NEURO:No Abnormalities, Impression Shortness of breath Procedures @16:50Normal Saline (.9% NaCl) 10cc (20 ga) Site: Antecubital-LeftSucceeded@16:49Oxygen FlowRate: 2 Device: Nasal Cannula (NC) Response: ImprovedSucceeded [facility] [address] [place] [address] EMS Patient Care Report Name: RACHELLE STEELE Room #: [facility].#: [id number] Admission: Attend Phys: Discharge: Date of : 55 Report #: [id number] Timeline 16:31,Call Received 16:31,Psap Call 16:33,Dispatched 16:34,En Route 16:37,Initial Responder On Scene 16:37,On Scene 16:38,At Patient 16:46,BP: / M,PULSE: 89,RR: R,SPO2: 95 Ox,ETCO2: ,BG: ,PAIN: ,GCS: , 16:47,BP: 164/88 M,PULSE: 87,RR: R,SPO2: 90 Ox,ETCO2: ,BG: ,PAIN: ,GCS: 15, 16:49,Oxygen FlowRate: 2 Device: Nasal Cannula (NC) Response: ImprovedSucceeded, 16:49,BP: / M,PULSE: 85,RR: R,SPO2: Ox,ETCO2: ,BG: ,PAIN: ,GCS: , 16:50,Normal Saline (.9% NaCl) 10cc 20 ga Site: Antecubital-Left,Succeeded, 16:51,BP: / M,PULSE: ,RR: R,SPO2: Ox,ETCO2: ,B,PAIN: ,GCS: , 16:52,Depart Scene 16:52,BP: 160/81 M,PULSE: 84,RR: R,SPO2: 100 Ox,ETCO2: ,BG: ,PAIN: ,GCS: , 16:57,BP: 149/104 M,PULSE: 82,RR: R,SPO2: 99 Ox,ETCO2: ,BG: ,PAIN: ,GCS: , 17:02,BP: 146/78 M,PULSE: 81,RR: R,SPO2: 99 Ox,ETCO2: ,BG: ,PAIN: ,GCS: , 17:07,BP: 134/85 M,PULSE: 80,RR: R,SPO2: 99 Ox,ETCO2: ,BG: ,PAIN: ,GCS: 15, 17:10,At Destination 17:20,Call Closed Disclaimer v1.1 Copyright 2020 [employer] This EMS Care Summary contains data elements from the applicable legal record (which may be displayed differently). It is designed to provide pertinent information for the following purposes: continuity of care, clinical quality, and state data reporting. The complete legal record is available to ED staff and administrators of the receiving hospital in [employer]'s Patient Tracker. All data is provided "as is."
[~2020-05-27 17:14] MED LIST changes: +PROMETH-CODEIN 65 ML PO; +ZPAK PO
[2020-05-27 17:59] LABS: ABSOLUTE NEUTROPHILS 6.1 thou/uL (1.4-8.2); BASOPHILS 0.2 % (0.0-2.0); HEMATOCRIT 34.5 % (42.0-52.0); HEMOGLOBIN 11.7 gm/dL (14.0-18.0); LYMPHOCYTES 6.4 % (24.0-44.0); MCHC 33.8 g/dL (28.0-37.0); MCV 91.5 fL (80.0-100.0); MONOCYTES 6.9 % (1.0-8.0); PLATELET COUNT 310 thou/uL (150-400); POLYS 84.5 % (36.0-66.0); RBC 3.77 mil/uL (4.50-6.00); RDW 12.8 % (10.5-14.5); WBC 7.2 thou/uL (4.0-11.0)
[2020-05-27 17:59] LABS: URINE BILIRUBIN NEGATIVE (Negative); URINE BLOOD 1+ (Negative); URINE CLARITY CLEAR; URINE COLOR YELLOW; URINE GLUCOSE-RANDOM* 2+ (Negative); URINE KETONES NEGATIVE (Negative); URINE LEUKOCYTES-REFLEX NEGATIVE (Negative); URINE NITRITE-REFLEX NEGATIVE (Negative); URINE PROTEIN (DIPSTICK) 3+ (Negative); URINE SPECIFIC GRAVITY >= 1.030 (1.005-1.035)
[2020-05-27 18:09] LABS: ANION GAP 10 mmol/L (7-16); BUN 19 mg/dL (7-18); CALCIUM 8.4 mg/dL (8.5-10.1); CHLORIDE 98 mmol/L (98-107); CO2 26 mmol/L (21-32); CREATININE 1.2 mg/dL (0.7-1.3); GLUCOSE 361 mg/dL (74-106); POTASSIUM 3.8 mmol/L (3.5-5.1); SODIUM 134 mmol/L (136-145)
[2020-05-27 18:14] LABS: BACTERIA-REFLEX 1-9 Few /HPF (None Seen); CASTS None Seen /LPF (None Seen); CRYSTALS None Seen /LPF (None Seen); SQUAMOUS None Seen /LPF (0-3); URINE RBC 0-2 Rare /HPF (0-2); URINE WBC-REFLEX None Seen /HPF (0-5)
[2020-05-27 18:19] LABS: ALBUMIN 2.4 g/dL (3.4-5.0); DIRECT BILIRUBIN 0.2 mg/dL (<0.1-0.2); LIPASE 92 U/L (73-393); SGOT 28 U/L (15-37); SGPT 16 U/L (30-65); TOTAL BILIRUBIN 0.5 mg/dL (0.2-1.0); TOTAL PROTEIN 7.6 g/dL (6.4-8.2); TROPONIN-I <0.06 ng/mL (<0.06)
[2020-05-27 20:38] VITALS: BP 169/90
--- NOTE | 2020-05-28 08:18 | EKG ---
[facility] [place] [address] ELECTROCARDIOGRAM REPORT Name: RACHELLE STEELE Room #: [facility]#: [id number] Admission: 05/27/20 Attend Phys: Discharge: 05/27/20 Date of : 55 Report #: [id number] THIS REPORT FOR: cc: Katheryn Helton MD, Nora P. MD Couchonnal, Luis F. 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 : 1955 Requested By: Wallace Busch Order Number: [id number] MD: Barry Moon Measurements Intervals [place] Rate: 76 P: 55 RI: 246 QRS: -22 QRSD: 104 T: -6 QT: 391 QTc: 440 Interpretive Statements Sinus rhythm Prolonged RI interval Borderline left axis deviation Borderline T wave abnormalities Compared to ECG 05/19/2020 13:30:57 T-wave abnormality now present Electronically Signed On 05-28-2020 8:18:07 CDT by Barry Moon [email or web address] <ELECTRONICALLY SIGNED> By: Barry Moon MD 05/28/20 0818 1747 174 Barry Moon MD /EPI
== END 2020-05-27 20:38 | disposition home or self-care (01) ==
LOC: ER 17:14
PROVIDERS: Nurse Practitioner
DX: U07.1 COVID-19 (principal); R11.2 Nausea with vomiting, unspecified; E11.9 Type 2 diabetes mellitus without complications; I10 Essential (primary) hypertension; K21.9 Gastro-esophageal reflux disease without esophagitis; Z79.899 Other long term (current) drug therapy; Z79.2 Long term (current) use of antibiotics; Z79.4 Long term (current) use of insulin; Z79.82 Long term (current) use of aspirin; Z88.8 Allergy status to other drugs, medicaments and biological substances; Z88.0 Allergy status to penicillin; Z89.512 Acquired absence of left leg below knee; Z89.511 Acquired absence of right leg below knee